=== PATIENT | female | born 1940 | race Caucasian/White ===

== ENCOUNTER 2019-07-29 07:33 | Outpatient (CLI) | payer MEDICARE, OTHER, SELFPAY ==
[2019-07-29 07:58] VITALS: BMI 29.7
--- NOTE | 2019-07-29 08:11 | ECG_ITS ---
NAME OF STUDY: LEXISCAN SESTAMIBI STRESS TEST INDICATION: Chest Pain PROCEDURE: At the baseline, the blood pressure was 136/80 mmHg with a heart rate of 89 bpm. The electrocardiogram showed A sense V paced rhythm. The Lexiscan was infused over a period of 20 seconds. A total of 0.4 milligrams of Lexiscan was infused. The stress phase was continued for a total of 5 minutes. Heart rate at the end of the stress phase was 70 bpm with a blood pressure 127/66 mmHg. The EKG at the peak infusion revealed A sense V paced rhythm. Sestamibi was injected 20 seconds after the Lexiscan infusion. Blood pressure at the end of the recovery phase was 130/68 mmHg with a heart rate of 74 beats per minute. CONCLUSION: 1. Non-diagnostic EKG with LexiScan infusion given underlying paced rhythm. 2. No LexiScan induced chest pain or cardiac arrhythmia. 3. Normal blood pressure and heart rate response. 4. Sestamibi/sestamibi perfusion scan pending; see separate report. Electronically Signed On 07-29-2019 16:04:54 [employer] by Nita Starkey M.D. [id number]
--- NOTE | 2019-07-29 08:11 | NMCV_ITS ---
NM rachael perf SPECT r/s* [id number] Jenifer Osborne Age: 78 Gender: F : 1940 Exam Date: 07/29/2019 08:11 Ordering Phys: Steve Valladares MD Technologist: DOROTHEA Choi Exam Location: [facility] Indications: CHEST PAIN STRESS TEST Please see separate stress test report in [facility] for full findings IMAGE PROTOCOL Rest/Stress 1 Lexiscan Day Radiopharmaceutical Dose (mCi) Administration Site Administered by Rest: Tc-99m 10.8 IV Perla Reyes, SLITTING AND SHIPPING SUPERVISOR Sestamibi Stress:Tc-99m 32.5 IV Perla Trejoer, SLITTING AND SHIPPING SUPERVISOR Sestamibi Rest: 29-Jul-2019 60 Discovery 630 Stress: 29-Jul-2019 30 Discovery 630 0.4mg Lexiscan. Images obtained in supine and prone position. SPECT RESULTS Technical Quality: Good Raw Data Analysis: Normal Image Corrections: No attenuation or motion correction applied Summed Stress Score: 8 Summed Rest Score: 16 Summed Difference Score: 0 PERFUSION FINDINGS Medium sized perfusion abnormality of moderate to severe severity of mid to apical inferior, mid to apical inferolateral, apical septal and apical eagle on rest images with improved tracer uptake on stress images. This is suggestive of attenuation artifact. FUNCTIONAL RESULTS (calculated via Gated SPECT) Stress Image LV EF (%): 82 Stress EDV (mL):55 TID: 0.86 Stress ESV (mL):10 FUNCTIONAL FINDINGS: The left ventricle is normal in size. Transient Ischemia Dilatation of 0.86. There is normal left ventricular systolic function. The left ventricular ejection fraction is normal with a value of 82%. There is normal left ventricular wall thickening. IMPRESSIONS 1. Medium sized perfusion abnormality of mid to apical inferior, mid to apical inferolateral, apical septal and apical eagle with improved tracer uptake on stress images. This is suggestive of attenuation artifact. 2. Overall left ventricular systolic function is normal without regional wall motion abnormalities. 3. The left ventricular ejection fraction is normal with a value of 82%. 4. No coronary ischemia based on the study. Nita Starkey MD (Electronically Signed) Final Date: 29 July 2019 16:10 S
[2019-07-29] MEDS: regadenoson 0.4 Mg/5 ml Syringe IVP (09:51)
[2019-07-29 09:52] VITALS: BP 131/60; PULSE 72
== END 2019-07-29 07:34 | disposition home or self-care (01) ==
PROVIDERS: Family Provider Family Medicine; PCP Internal Medicine Cardiovascular Disease; Visit Provider Family Medicine
DX: R07.9 Chest pain, unspecified (principal)
CPT/HCPCS: 78452; 93017; A9500; J2785

== ENCOUNTER 2019-11-27 00:11 | Emergency (ER) | payer MEDICARE, OTHER, SELFPAY ==
--- NOTE | 2019-11-27 00:19 | XR_ITS ---
WS: [id number] XR chest 1V portable [id number] REASON FOR EXAM: Palpitations FINDINGS: A dual electrode pacemaker is identified in good position. The heart is not enlarged similar to December 04, 2017. There is arteriosclerotic changes in the arch of the aorta. The lung enciso show no pneumonia, pleural effusion, pulmonary edema, or mass effect. There is increa sed markings seen suggesting chronic changes. XR/XR chest 1V portable [id number] IMPRESSION: Dual electrode pacemaker satisfactory position.
[2019-11-27 00:20] VITALS: BP 160/109; PULSE 103; RESP 24; TEMP 36.8; O2SAT 97; BMI 30.3
--- NOTE | 2019-11-27 00:20 | ECG_ITS ---
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 Measurements Intervals [place] Rate: 71 P: 254 NV: 178 QRS: -66 QRSD: 173 T: 83 QT: 430 QTc: 469 Interpretive Statements ELECTRONIC ATRIAL PACEMAKER ELECTRONIC VENTRICULAR PACEMAKER ABNORMAL RHYTHM ECG Compared to ECG 12/03/2017 23:59:18 No significant changes Electronically Signed On 11-27-2019 19:15:38 CDT by Gail Hunt M.D. [id number]
--- NOTE | 2019-11-27 00:27 | ED_ITS ---
HPI - Arrhythmia/Palpitations General: Chief Complaint: Arrhythmia/Palpitations Stated Complaint: IRREGULAR CARDIAC ACTIVITY Time Seen by Provider: 11/27/19 00:18 Source: patient Mode of arrival: ambulatory Limitations: no limitations History of Present Illness: HPI narrative: Ms. Osborne is a nice 78-year-old female who comes in complaining of irregular heartbeat. Patient states that she has history of atrial fibrillation and PACs. 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 She denies any chest pain or shortness of breath although she states when her palpitations get very fast they take her breath away. She is not been syncopal or near syncopal. Her symptoms lasted varying amounts of time but seems to bother her the most is when her heart rate slows down to the 30s. She reported these to her supervisor commissary production at her last visit and he stopped her spironolactone. Currently at this time she feels fine without any symptoms. PFS ED PFSH: Medical History (Updated 11/27/19 @ 02:47 by Sima Moise) Atrial fibrillation and flutter GERD (gastroesophageal reflux disease) Hypertension Hypothyroidism PASTORA on CPAP Osteoarthritis Pacemaker TIA (transient ischemic attack) Surgical History (Updated 11/27/19 @ 00:28 by Sima Moise) S/P cardiac pacemaker procedure S/P cholecystectomy S/P hysterectomy S/P knee surgery S/P partial thyroidectomy Family History Mother Stroke Son Diabetes Other Hypertension Social History Smoking and tobacco status: never smoked Physical Exam Const: COMMON NORMALS: no acute distress, patient oriented x3, no limitations, healthy appearing and well nourished GENERAL APPEARANCE: cooperative, well kempt and well developed HENMT: COMMON NORMALS: normocephalic, atraumatic, external ears normal, EAC's normal and Normal external nose present HEAD & SCALP: normal to inspection, normocephalic and atraumatic FACE & SINUS: normal facial exam and face symmetric NOSE: Normal external nose present and Normal nares present EXTERNAL EAR: Yes external ears normal EXTERNAL AUDITORY CANAL: EAC's normal MOUTH: Normal oral and palatal mucosa present, lip normal and tongue normal Eye: COMMON NORMALS: Equal, round and reactive pupils present and conjunctivae normal GENERAL EYE: appearance normal, both eyes and all related structures ALIGNMENT: Yes alignment normal PERIORBITAL: periorbital findings normal EYELID: eyelids normal CONJUNCTIVA: Yes conjunctivae normal SCLERA: sclerae normal PUPIL: Yes Equal, round and reactive pupils present Neck/C-Spine: COMMON NORMALS: full ROM, no lymphadenopathy, supple, no meningeal signs and no JVD GENERAL: Yes normal visual inspection and Yes trachea midline Chest: COMMONS NORMALS: normal inspection of the chest and normal palpation of entire chest wall Resp: COMMON NORMALS: normal respiratory effort, No retractions and No use of accessory muscles EFFORT & INSPECTION: Yes able to speak in complete sentences and Yes symmetric chest movement AUSCULTATION: no crackles, no rales, no rhonchi and no wheezes Cardio: COMMON NORMALS: no JVD, regular rate, regular rhythm, S1 normal heart sound present and S2 normal heart sound present RATE: regular rate RHYTHM: regular rhythm HEART SOUNDS: S1 normal heart sound present, S2 normal heart sound present, no click, no gallops, no murmurs, no rubs and abnormal split S2 GI: COMMON NORMALS: Soft to palpation and No hepatosplenomegaly present PALPATION: Yes Soft to palpation, No Tenderness to palpation present (GI), No Guarding due to palpation present (GI), No Rigid due to palpation, Yes No hepatosplenomegaly present, No Hernia present, No Palpable mass present and No Pulsatile mass present : COMMON NORMALS: Yes no CVA tenderness BLADDER/KIDNEY EXAM: Yes no CVA tenderness EXTERNAL FEMALE EXAM: No Hernia present Back/Pelvis: COMMON NORMALS: no CVA tenderness, thoracic and lumbar spine normal to inspection, no thoracic nor lumbar tenderness and thoraco-lumbar ROM normal Extremity: COMMON NORMALS: normal to inspection, full ROM, capillary refill normal, no joint enlargement, no clubbing, cyanosis or edema and no calf tenderness Neuro: COMMON NORMALS: patient oriented x3, CN's II-XII intact bilaterally, moves all extremities, no focal motor deficits and no sensory deficits noted MENINGEAL SIGNS: Yes no meningeal signs SPEECH: speech normal Psych: COMMON NORMALS: mental status grossly normal, Normal thought process present, cooperative, normal affect, speech normal and activity/motor behavior normal APPEARANCE: Yes well kempt SPEECH: Yes normal speech THOUGHT PROCESS: Normal thought process present Skin: COMMON NORMALS: no rashes or lesions noted, turgor normal, no jaundice, no petechiae and no mottling GENERAL SKIN EXAM: no rashes or lesions noted and turgor normal Course Vital Signs: Vital signs: Vital Signs Temperature 98.3 F 11/27/19 00:20 Pulse Rate 74 11/27/19 04:00 Respiratory Rate 16 11/27/19 04:00 Blood Pressure 164/92 11/27/19 04:00 Pulse Oximetry 98 11/27/19 04:00 MDM - Arrhythmia/Palpitations MDM Narrative: Medical decision making narrative: Ms. Osborne is a very nice 78-year-old female who comes in complaining of palpitations. She is had no chest pain and no shortness of breath other than she states she will sometimes get startled and have a brief moment of shortness of breath. Her EKGs show paced rhythms the second EKG shows some underlying T wave inversions and going back to her multiple EKGs in the past she has had these T wave inversions present previously. She has had 2- troponins here and her delta is not significant. I have offered to put her in the hospital for further evaluation and care but she refuses. She wants to go home and follow-up with her regular doctor. The patient's pacemaker was also interrogated and other than on October 18 a run of A. isela the patient has not had any bradycardic episodes, tachycardic episodes or ventricular arrhythmias. Patient seems to be encouraged by this and she agrees to follow-up as directed or return here if needed. Again the patient was offered admission for stress testing but she declines. She understood the seriousness of a possible ischemic problem but based upon her history and previous abnormal EKGs she declined admission but preferred to follow-up with her doctor. Lab Data: Attestation: I reviewed the patient's lab results. Labs: Lab Results 11/27/19 11/27/19 11/27/19 Range/Units 00:56 00:56 00:56 WBC 9.8 (4.0-10.0) 10^3/ uL RBC 4.61 (4.1-5.3) 10^6/u L Hgb 13.0 (11.5-15.3) g/dL Hct 39.7 (37.0-47.0) % MCV 86.1 (81-99) fL MCH 28.2 (28.0-34.0) pg MCHC 32.7 (30.0-36.0) g/dL RDW 14.2 (12.1-15.1) % Plt Count 286 (130-400) 10^3/c mm MPV 10.5 H (7.4-10.4) fL Neut % (Auto) 65.6 % Lymph % (Auto) 21.7 % Mcdonough % (Auto) 8.1 % Eos % (Auto) 3.5 % Baso % (Auto) 0.7 % Neut # (Auto) 6.4 (1.8-7.7) 10^3/u L Lymph # (Auto) 2.1 (0.8-4.8) 10^3/u L Mcdonough # (Auto) 0.8 (0.2-0.9) 10^3/u L Eos # (Auto) 0.3 (0.0-0.8) 10^3/u L Baso # (Auto) 0.1 (0.0-0.1) 10^3/u L Nucleated RBC % (a uto) 0 % Nucleated RBCs # 0.0 /100WBC PT 14.30 H (10.5-13.3) SECO NDS INR 1.07 (0.8-1.2) APTT 27.8 (23.9-36.7) SECO NDS Sodium 141 (136-145) mmol/L Potassium 4.0 (3.5-5.1) mmol/L Chloride 103 (98-107) mmol/L Carbon Dioxide 26 (22-29) mmol/L Anion Gap 16.0 (5-19) BUN 14 (8-23) mg/dL Creatinine 0.7 (0.5-0.9) mg/dL Glucose 133 H (65-115) mg/dL Calculated Osmolal ity 290 (285-295) mOsm/k g Calcium 9.5 (8.5-10.5) mg/dL Magnesium 1.8 (1.7-2.3) mg/dL Total Bilirubin 0.3 (0.15-1.2) mg/dL AST 19 (0-32) U/L ALT 16 (0-33) U/L Alkaline Phosphata se 94 (35-105) IU/L Troponin T Baselin e (0-10) ng/L Troponin T 120 Min rampart (0-10) ng/L Delta Troponin T (0-10) ABS# Total Protein 6.6 (6.6-8.7) g/dL Albumin 4.1 (3.5-5.2) g/dL Globulin 2.5 (1.3-4.6) g/dL TSH 0.62 (0.27-4.20) uIU/ mL Urine Color (Yellow) Urine Appearance (CLEAR) Urine pH (5-7) Ur Specific Gravit y (1.005-1.030) Urine Protein (Negative) Urine Glucose (UA) (Normal) Urine Ketones (Negative) Urine Blood (Negative) Urine Nitrate (Negative) Urine Bilirubin (NEGATIVE) Urine Urobilinogen (Negative) mg/dL Ur Leukocyte Marcy ase (Negative) Urine RBC (0-2) /hpf Urine WBC (0-5) /hpf Ur Squamous Epith Cells (0-5) Urine Bacteria (NONE) Digoxin 0.7 (0.6-1.2) ng/mL 11/27/19 11/27/19 11/27/19 Range/Units 00:56 01:30 02:20 WBC (4.0-10.0) 10^3/ uL RBC (4.1-5.3) 10^6/u L Hgb (11.5-15.3) g/dL Hct (37.0-47.0) % MCV (81-99) fL MCH (28.0-34.0) pg MCHC (30.0-36.0) g/dL RDW (12.1-15.1) % Plt Count (130-400) 10^3/c mm MPV (7.4-10.4) fL Neut % (Auto) % Lymph % (Auto) % Mcdonough % (Auto) % Eos % (Auto) % Baso % (Auto) % Neut # (Auto) (1.8-7.7) 10^3/u L Lymph # (Auto) (0.8-4.8) 10^3/u L Mcdonough # (Auto) (0.2-0.9) 10^3/u L Eos # (Auto) (0.0-0.8) 10^3/u L Baso # (Auto) (0.0-0.1) 10^3/u L Nucleated RBC % (a uto) % Nucleated RBCs # /100WBC PT (10.5-13.3) SECO NDS INR (0.8-1.2) APTT (23.9-36.7) SECO NDS Sodium (136-145) mmol/L Potassium (3.5-5.1) mmol/L Chloride (98-107) mmol/L Carbon Dioxide (22-29) mmol/L Anion Gap (5-19) BUN (8-23) mg/dL Creatinine (0.5-0.9) mg/dL Glucose (65-115) mg/dL Calculated Osmolal ity (285-295) mOsm/k g Calcium (8.5-10.5) mg/dL Magnesium (1.7-2.3) mg/dL Total Bilirubin (0.15-1.2) mg/dL AST (0-32) U/L ALT (0-33) U/L Alkaline Phosphata se (35-105) IU/L Troponin T Baselin e 9 (0-10) ng/L Troponin T 120 Min rampart 9.50 (0-10) ng/L Delta Troponin T 0.50 (0-10) ABS# Total Protein (6.6-8.7) g/dL Albumin (3.5-5.2) g/dL Globulin (1.3-4.6) g/dL TSH (0.27-4.20) uIU/ mL Urine Color Yellow (Yellow) Urine Appearance Clear (CLEAR) Urine pH 6 (5-7) Ur Specific Gravit y 1.010 (1.005-1.030) Urine Protein Neg (Negative) Urine Glucose (UA) Norm (Normal) Urine Ketones Negative (Negative) Urine Blood Neg (Negative) Urine Nitrate Negative (Negative) Urine Bilirubin Neg (NEGATIVE) Urine Urobilinogen Norm (Negative) mg/dL Ur Leukocyte Marcy ase Negative (Negative) Urine RBC Rare (0-2) /hpf Urine WBC Rare (0-5) /hpf Ur Squamous Epith Cells Rare (0-5) Urine Bacteria Trace (NONE) Digoxin (0.6-1.2) ng/mL Imaging Data^: CXR: My impression: No acute cardiopulmonary findings. EKG Data^: EKG 1: Attestation: I personally reviewed and interpreted this EKG as follows: EKG interpretation date: 11/27/19 EKG interpretation time: 00:37 Interpretation: AV sequential pacemaker with a ventricular rate of 71 beats a minute, similar to previous. EKG 2: Attestation: I personally reviewed and interpreted this EKG as follows: EKG interpretation date: 11/27/19 EKG interpretation time: 02:50 Interpretation: Atrial paced rhythm at 70 beats a minute, T wave inversions 2, 3, aVF and V2 through V5. Similar to previous. Discharge Plan Discharge Patient Disposition: Home, Self-Care Clinical Impression: Palpitations Condition: Stable Prescriptions: No Action hydralazine 25 mg tablet 25 mg PO TID RF: 0 cetirizine [Zyrtec] 10 mg tablet 5 mg PO DAILY RF: 0 nitroglycerin [Nitrostat] 0.4 mg tablet, sublingual 0.4 mg SUBLINGUAL Q5M PRNRF: 0 Pradaxa 150 mg capsule 150 mg PO BID RF: 0 aspirin [Adult Low Dose Aspirin] 81 mg tablet,delayed release (DR/EC) 81 mg PO DAILY RF: 0 irbesartan [Avapro] 300 mg tablet 300 mg PO DAILY RF: 0 levothyroxine [Levoxyl] 175 mcg tablet 175 mcg PO DAILY RF: 0 pravastatin [Pravachol] 20 mg tablet 20 mg PO DAILY RF: 0 mometasone [Nasonex] 50 mcg/actuation spray,non-aerosol 2 spray INTRANASAL DAILY RF: 0 digoxin 125 mcg (0.125 mg) tablet 125 mcg PO DAILY RF: 0 magnesium oxide 400 mg magnesium capsule 400 mg PO DAILY RF: 0 clindamycin HCl 300 mg capsule 300 mg PO ONCE PRN (Reason: dental) RF: 0 metoprolol tartrate 25 mg tablet 37.5 mg PO BID 90 Days Qty: 270 RF: 3 Eliquis 5 mg tablet 5 mg PO BID 90 Days Qty: 180 RF: 3 pantoprazole 40 mg tablet,delayed release (DR/EC) 40 mg PO BID 90 Days Qty: 180 RF: 3 Discharge Orders: Discharge Order (Routine); Ordered 11/27/19 Ordered By: Sima Moise Referrals: Neel Caceres MD [Physician] - 1-3 days Steve Valladares MD [Primary Care Provider] - 1-3 days Discharge Diet: Advance as tolerated Discharge Activity: Increase activity as tolerated Patient Instructions: Palpitations (ED) Activity Restrictions/Additional Instructions: Please return to the ER immediately for any of the signs or symptoms listed on your discharge instruction sheets, worsening/changing of your symptoms, you are not getting better as quickly as expected, or for ANY other cause or concerns. Call for an appointment to be seen by Dr. Hinds and Dr. Valladares as soon as possible for further evaluation and care. Discharge Date/Time: 11/27/19 04:21 Coding Level of Care Code ED Zinc Furnace Charger for Chg Fwd Exam Comprehensive
[2019-11-27 01:05] LABS: Basophils # 0.1 10^3/uL (0.0-0.1); Basophils % 0.7 %; Eosinophils # 0.3 10^3/uL (0.0-0.8); Eosinophils % 3.5 %; Hematocrit 39.7 % (37.0-47.0); Lymphocytes # 2.1 10^3/uL (0.8-4.8); Lymphocytes % 21.7 %; Mean Corpuscular HGB Conc 32.7 g/dL (30.0-36.0); Mean Corpuscular Hemoglobin 28.2 pg (28.0-34.0); Mean Corpuscular Volume 86.1 fL (81-99); Mean Platelet Volume 10.5 fL (7.4-10.4); Monocytes # 0.8 10^3/uL (0.2-0.9); Monocytes % 8.1 %; Neutrophils # 6.4 10^3/uL (1.8-7.7); Neutrophils % 65.6 %; Nucleated Red Blood Cells % 0 %; Platelet Count 286 10^3/cmm (130-400); Red Blood Count 4.61 10^6/uL (4.1-5.3); Red Cell Distribution Width 14.2 % (12.1-15.1); White Blood Count 9.8 10^3/uL (4.0-10.0)
[2019-11-27 01:19] LABS: INR 1.07 (0.8-1.2)
[2019-11-27 01:26] LABS: Troponin(5th) Baseline 9 ng/L (0-10)
[2019-11-27 01:27] LABS: Partial Thromboplastin Time 27.8 SECONDS (23.9-36.7)
[2019-11-27 01:33] LABS: Alanine Aminotransferase 16 U/L (0-33); Albumin Level 4.1 g/dL (3.5-5.2); Alkaline Phosphatase 94 IU/L (35-105); Blood Urea Nitrogen 14 mg/dL (8-23); Calcium 9.5 mg/dL (8.5-10.5); Carbon Dioxide 26 mmol/L (22-29); Chloride 103 mmol/L (98-107); Globulin 2.5 g/dL (1.3-4.6); Glucose 133 mg/dL (65-115); Magnesium 1.8 mg/dL (1.7-2.3); Osmolality Calculated 290 mOsm/kg (285-295); Sodium 141 mmol/L (136-145); Thyroid Stimulating Hormone 0.62 uIU/mL (0.27-4.20); Total Bilirubin 0.3 mg/dL (0.15-1.2); Total Protein 6.6 g/dL (6.6-8.7)
[2019-11-27 01:47] LABS: Digoxin 0.7 ng/mL (0.6-1.2)
[2019-11-27 02:00] VITALS: O2SAT 98
[2019-11-27 02:07] LABS: Aspartate Amino Transferase 19 U/L (0-32)
--- NOTE | 2019-11-27 02:20 | ECG_ITS ---
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 Measurements Intervals [place] Rate: 70 P: -51 AK: 335 QRS: 87 QRSD: 81 T: -68 QT: 370 QTc: 401 Interpretive Statements ELECTRONIC ATRIAL PACEMAKER POSSIBLE RIGHT VENTRICULAR CONDUCTION DELAY [RSR (QR) IN V1/V2] ST DEVIATION AND MODERATE T-WAVE ABNORMALITY, CONSIDER ANTEROLATERAL ISCHEMIA [-0.1+ mV T WAVE IN V3-V6] ST DEVIATION AND MODERATE T-WAVE ABNORMALITY, CONSIDER INFERIOR ISCHEMIA [-0.1+ mV T WAVE IN II/aVF] Compared to ECG 11/27/2019 00:37:26 T-wave abnormality now present Possible ischemia now present Ventricular-paced complex(es) or rhythm no longer present Electronically Signed On 11-27-2019 19:32:27 CDT by Gail Hunt M.D. [id number]
[2019-11-27 02:24] LABS: Bacteria Urine TRACE; Bilirubin Urine Neg (NEGATIVE); Blood Urine Neg (Negative); Glucose Urine UA Norm (Normal); Ketones Urine Negative (Negative); Leukocyte Esterase Urine Negative (Negative); Nitrate Urine Negative (Negative); Protein Urine Neg (Negative); RBC Urine RARE /hpf (0-2); Squamous Epithelial Cell Urine RARE (0-5); Urine Appearance Clear (CLEAR); Urine Color Yellow (Yellow); Urobilinogen Urine Norm (Negative); WBC Urine RARE /hpf (0-5); pH Urine 6 (5-7)
[2019-11-27 03:08] VITALS: BP 183/97; PULSE 76; RESP 16; O2SAT 97
[2019-11-27 03:15] VITALS: BP 172/96; PULSE 86; RESP 18; O2SAT 98
[2019-11-27 04:00] VITALS: BP 164/92; PULSE 74; RESP 16; O2SAT 98
--- NOTE | 2019-11-28 10:21 | DCPLANNER ---
anatomic pathology manager had message to schedule a follow up appointment for patient with [facility]. anatomic pathology manager called [facility], spoke with Laurence, gave clinic patients information. anatomic pathology manager was told that patients information would be printed and reviewed. Clinic will call patient with appointment information.
--- NOTE | 2019-11-29 11:22 | DCPLANNER ---
Patient had a follow up appointment scheduled for 11.29.19, patient did attend the appointment.
== END 2019-11-27 04:21 | disposition home or self-care (01) ==
PROVIDERS: Emergency Provider Emergency Medicine; PCP Family Medicine
DX: R00.2 Palpitations (principal); Z79.82 Long term (current) use of aspirin; Z79.01 Long term (current) use of anticoagulants; I48.91 Unspecified atrial fibrillation; I10 Essential (primary) hypertension; Z95.0 Presence of cardiac pacemaker; Z86.73 Personal history of transient ischemic attack (TIA), and cerebral infarction without residual deficits
CPT/HCPCS: 12345; 36415; 71045; 80053; 80162; 81001; 83735; 84443; 84484; 85025; 85610; 85730; 93005; 99283; 99284

== ENCOUNTER 2019-11-27 08:05 | Outpatient (CLI) | payer MEDICARE, OTHER, SELFPAY ==
--- NOTE | 2019-11-27 08:22 | US_ITS ---
WS: [id number] ULTRASOUND BREAST RIGHT TECHNIQUE: Ultrasound right breast focused area of concern. CLINICAL INFORMATION: RT BREAST MASS COMPARISON: Ultrasound May 15, 2019 Mammogram May 15, 2019,03/14/2019 and 03/28/2018 FINDINGS: Ultrasound right breast at the 11:00 position 2 cm from the nipple. A few lobulated hypoechoic lesion s consistent with incidental cysts unchanged in appearance since the prior ultrasound. The largest me asures 6 to 7 mm. Incidental lymph node 4 cm from the nipple. A few incidental dilated ducts. US/US breast RT limited* [id number] IMPRESSION: BI-RADS 2 BENIGN FOLLOW UP RECOMMEND RETURN TO ANNUAL SCREENING MAMMOGRAPHY
== END 2019-11-27 08:06 | disposition home or self-care (01) ==
LOC: RADSHAW 08:10
PROVIDERS: PCP Family Medicine; Visit Provider Family Medicine
DX: N63.10 Unspecified lump in the right breast, unspecified quadrant (principal)
CPT/HCPCS: 76642

== ENCOUNTER 2019-12-31 13:46 | Outpatient (CLI) | payer MEDICARE, OTHER, SELFPAY ==
--- NOTE | 2019-12-31 13:52 | US_ITS ---
WS: [id number] ULTRASOUND SOFT TISSUES RIGHT lower extremity. HISTORY: CALF PAIN, RIGHT COMPARISON: None available. TECHNIQUE: 2-D and color Doppler imaging is submitted. Patient directed behavior analyst to the area of pain. No soft tissue abnormality is noted. There is a mus cular venous branch which is patent. No superficial thrombophlebitis. No Dhaliwal's cyst. US/US soft tissue/extremity [id number] IMPRESSION: Negative ultrasound RIGHT lower extremity in the area of pain.
== END 2019-12-31 13:47 | disposition home or self-care (01) ==
LOC: RAD 13:50
PROVIDERS: PCP Family Medicine; Visit Provider Family Medicine
DX: M79.661 Pain in right lower leg (principal)
CPT/HCPCS: 76882

== ENCOUNTER → 2020-06-15 17:58 | Outpatient (BNVA) | payer MEDICARE, OTHER, SELFPAY | PROVIDERS: PCP Family Medicine; Visit Provider Family Medicine | DX: Z20.828 Contact with and (suspected) exposure to other viral communicable diseases (principal) | CPT/HCPCS: 87635 ==

== ENCOUNTER 2020-06-18 09:57 | Outpatient (CLI) | payer MEDICARE, OTHER, SELFPAY ==
[2020-06-18 10:11] VITALS: BP 168/95; PULSE 76; RESP 18; TEMP 36.7; O2SAT 96
[2020-06-18 10:13] VITALS: BMI 30.2
--- NOTE | 2020-06-18 10:13 | A.OFFVIS_ITS ---
Patient Information Referred by: Blaine Symptom onset date: 06/12/20 COVID 19 common symptoms: positive cough, fatigue, throat pain and nausea COVID 19 other sytmptoms: negative chest pressure, chest pain, pleuritic pain, requiring oxygen, requiring more oxygen, respiratory distress, cyanosis, lethargy, confusion, new neurological complaints or other concerning symptoms Severity: moderate Treatment prior to arrival: none [facility] COVID test results: Nasal/Oral Coronavirus 2019 PCR Detected H 06/15/20 17:58 06/15/20 outside results available, scanned Criteria/Plan Inclusion/Exclusion Criteria weight >/= 40kg, + direct test </= 10 days ago and symptom onset </= 10 days ago age >/= 65, age >/= 55 and has hypertension, age >/= 55 and has diabetes and age >/= 55 and has COPD/lung diease not requiring hospitalization, not requiring oxygen (if not chronically on oxygen) and no increase oxygen requirement (if chronically on oxygen) Patient education patient/caregiver received/reviewed fact sheet, Emergency Use Authorization/unap proved drug status discussed with patient/caregiver, alternatives to this treatment discussed with patient/caregiver, risks and benefits of medication reviewed with patient/caregiver, patient/caregiver given opportunity for questions, which were answered and patient/caregiver consents to receiving Monoclonal Antibody Treatment Plan for treatment Meets criteria for Monoclonal Antibody infusion Ordering Monoclonal Antibody infusion for today
[2020-06-18 10:47] VITALS: BP 159/79; PULSE 70; RESP 15; TEMP 36.8; O2SAT 96
[2020-06-18 11:04] VITALS: BP 139/71; PULSE 70; RESP 15; TEMP 36.7; O2SAT 96
[2020-06-18 12:17] VITALS: BP 165/79; PULSE 70; RESP 14; TEMP 36.6; O2SAT 97
--- NOTE | 2020-06-25 12:42 | DCPLANNER ---
Addendum entered by Juanita Flores 06/30/20 14:25: optical manager called to check on patient after getting the BAM infusion. Patient stated that she is doing just fine, she has not been admitted anywhere. Original Note: optical manager had message that patient received the BAM infusion. optical manager called to check on patient after receiving the infusion. Spoke with patient, she stated that before the infusion that she had a fever, a hacky cough, and a runny nose. After the infusion, she is feeling really well, no fever, cough is better and she still has a little runny nose.
== END 2020-06-18 12:30 | disposition home or self-care (01) ==
PROVIDERS: PCP Family Medicine; Visit Provider Family Medicine
DX: U07.1 COVID-19 (principal)
CPT/HCPCS: 96365; J7050

== ENCOUNTER 2020-08-05 13:31 | Outpatient (CLI) | payer MEDICARE, OTHER, SELFPAY ==
--- NOTE | 2020-08-05 13:35 | XR_ITS ---
WS: [id number] DEXA (DUAL ENERGY X-RAY ABSORPTIOMETRY) Bone mineral density was performed using a [email or web address] machine. HISTORY: POSTMENOPAUSAL COMPARISON: None available. Lumbar spine BMD (L1-L4): 1.479 g/cm2 T score: 2.5 Z score: 3.7 Total hip BMD: Left: 1.176 g/cm2. T score: 1.3 Z score: 2.9 Right: 1.201 g/cm2. T score: 1.5 Z score: 3.1 10 year probability of a major osteoporotic fracture is 6%. XR/XR DEXA axial skeleton* [id number] IMPRESSION: NORMAL BONE MINERAL DENSITY based upon the WHO classification for females.
== END 2020-08-05 13:32 | disposition home or self-care (01) ==
LOC: RADWPI 13:33
PROVIDERS: PCP Family Medicine; Visit Provider Family Medicine
DX: Z78.0 Asymptomatic menopausal state (principal)
CPT/HCPCS: 77080

== ENCOUNTER 2020-08-27 12:50 | Outpatient (CLI) | payer MEDICARE, OTHER, SELFPAY ==
--- NOTE | 2020-08-27 13:00 | MM_ITS ---
WS: [id number] BILATERAL DIGITAL SCREENING MAMMOGRAPHY WITH CAD CLINICAL INFORMATION: SCREENING HISTORY: Screening mammogram. No current complaints. COMPARISON: April 11, 2019 TECHNIQUE: Bilateral CC and MLO views. FINDINGS: The breasts are composed of heterogeneous fibroglandular density tissue, which can limit the detectio n of small underlying mass lesions. Stable bilateral ovoid nodules previously evaluated. No suspiciou s mass, asymmetry, calcifications, or architectural distortion. No evidence of malignancy. Vascular c alcification. A few punctate calcifications. MM/[place] [id number] IMPRESSION: BI-RADS: 2-Benign FOLLOW UP: 1 Year Follow-up Recommend return to annual screening mammography.
== END 2020-08-27 12:51 | disposition home or self-care (01) ==
LOC: RADSHAW 12:51
PROVIDERS: PCP Family Medicine; Visit Provider Family Medicine
DX: Z12.31 Encounter for screening mammogram for malignant neoplasm of breast (principal)
CPT/HCPCS: 77067

== ENCOUNTER 2021-02-16 07:45 | Outpatient (CLI) | payer MEDICARE, OTHER, SELFPAY ==
--- NOTE | 2021-02-16 07:58 | US_ITS ---
WS: [id number] ULTRASOUND ABDOMEN LIMITED UPPER QUADRANT CLINICAL INFORMATION: LUQ ABDOMINAL PAIN COMPARISON: None. FINDINGS: Ultrasound left upper quadrant. Ultrasound in the area of concern below the left rib. No visualized a bnormalities in the area of concern. No cystic or solid lesions. Splenic granulomas Splenomegaly: None. Craniocaudal length: 10.4 cm. Left kidney: Normal. Hydronephrosis: None. Size: 11.7 cm x 3.6 cm x 5.1 cm. Ascites: None. US/US abdomen limited [id number] IMPRESSION: Ultrasound in the area of concern below the left rib. No visualized abnormaliti es in the area of concern. No cystic or solid lesions.
== END 2021-02-16 07:46 | disposition home or self-care (01) ==
PROVIDERS: PCP Family Medicine; Visit Provider Family Medicine
DX: R10.12 Left upper quadrant pain (principal)
CPT/HCPCS: 76705

== ENCOUNTER 2021-06-08 03:24 | Emergency (ER) | payer MEDICARE, OTHER, SELFPAY ==
[2021-06-08 03:28] VITALS: PULSE 92; RESP 17; TEMP 36.8; O2SAT 95; BMI 30.7
[2021-06-08 03:40] VITALS: BP 171/85; PULSE 72; RESP 18; O2SAT 97
--- NOTE | 2021-06-08 03:41 | XRR_ITS ---
PROCEDURE INFORMATION: Exam: XR Chest Exam date and time: 06/08/2021 3:41 AM Age: 80 years old Clinical indication: Other: CVA; Prior surgery; Surgery date: 6+ months; Surgery type: Pacemaker TECHNIQUE: Imaging protocol: XR of the chest. Views: 1 view. COMPARISON: CR XR chest 1V portable [id number] 11/27/2019 12:54 AM FINDINGS: Tubes, catheters and devices: Left bipolar pacemaker again evident. Lungs: Obliquity of the interval thin linear density over the right lower lung suggesting an artifact more than depression of the minor fissure. Interval skin fold over each upper lung. Still no consolidation. Pleural spaces: Still no pneumothorax or apparent pleural fluid. Heart/Mediastinum: Continued mild cardiomegaly. Vasculature: Continued mild aortic elongation. Bones/joints: No suggestion of acute bony disease. XR/XR chest 1V portable [id number] IMPRESSION: No acute findings. Left bipolar pacemaker and mild cardiomegaly again evident.
--- NOTE | 2021-06-08 03:41 | ECG_ITS ---
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 Measurements Intervals Talmo Rate: 69 P: -8 IA: 194 QRS: -70 QRSD: 157 T: 80 QT: 413 QTc: 445 Interpretive Statements ELECTRONIC ATRIAL PACEMAKER ELECTRONIC VENTRICULAR PACEMAKER ABNORMAL RHYTHM ECG Compared to ECG 11/27/2019 02:50:53 T-wave abnormality no longer present Possible ischemia no longer present Electronically Signed On 06-08-2021 23:58:08 SHOP COORDINATOR by Gail Hunt M.D. [id number]
--- NOTE | 2021-06-08 03:42 | W.ED.EXTPRO ---
HPI - Extremity Problem General: Chief complaint: Extremity Problem,Nontraumatic Stated complaint: PT said Pre stroke symptoms Time Seen by Provider: 06/08/21 03:34 Source: patient Mode of arrival: ambulatory Limitations: no limitations History of Present Illness: HPI Narrative: 80-year-old female states that she is here for paresthesias to her right leg. She states she is actually has had numbness in her foot for years states that over the last few weeks she has had increasing numbness going up her leg with some numbness on the right side vomiting. States she had no weakness no slurred speech no other deficits whatsoever she denies any worsening improving factors states it seems to come and go at times well denies any pain anywhere. Associated symptoms: Deny chest pain, fever(s) or rash Review of Systems Const: Denies: fever(s), chills, body aches or change in appetite Eyes: Denies: blurry vision or eye discomfort ENMT: Denies: throat pain or dental pain Card: Denies: chest pain Resp: Denies: dyspnea GI: Denies: abdominal pain, nausea, vomiting or diarrhea : Denies: dysuria Musc: Denies: neck pain or back pain Skin/Breast: Denies: rash Neuro: Reports: numbness in extremities Psych: Denies: depression Cole/Lymph: Denies: easy bruising All/Imm: Denies: urticaria PFSH ED PFSH: Medical History (Updated 06/08/21 @ 04:42 by Ayla Lundberg MD) Atrial fibrillation and flutter GERD (gastroesophageal reflux disease) Hypertension Hypothyroidism PASTORA on CPAP Osteoarthritis Pacemaker TIA (transient ischemic attack) Surgical History S/P cardiac pacemaker procedure S/P cholecystectomy S/P hysterectomy S/P knee surgery S/P partial thyroidectomy Family History Mother Stroke Son Diabetes Other Hypertension Social History Smoking and tobacco status: never smoked Physical Exam Const: COMMON NORMALS: no acute distress, patient oriented x3 and healthy appearing HENMT: COMMON NORMALS: normocephalic and atraumatic HEAD & SCALP: normocephalic and atraumatic Eye: COMMON NORMALS: Equal, round and reactive pupils present and EOMs intact bilaterally PUPIL: Yes Equal, round and reactive pupils present Neck/C-Spine: COMMON NORMALS: full ROM and supple Chest: COMMONS NORMALS: normal inspection of the chest and normal palpation of entire chest wall Resp: COMMON NORMALS: normal respiratory effort, No retractions, No use of accessory muscles and clear to auscultation bilaterally AUSCULTATION: clear to auscultation bilaterally Cardio: COMMON NORMALS: regular rate, regular rhythm and No murmurs present (Cardio) RATE: regular rate RHYTHM: regular rhythm GI: COMMON NORMALS: Normal to inspection, nondistended, normoactive bowel sounds present, Soft to palpation, non-tender and no masses PALPATION: Yes Soft to palpation Extremity: COMMON NORMALS: normal to inspection and full ROM Neuro: COMMON NORMALS: patient oriented x3, moves all extremities and no focal motor deficits Psych: COMMON NORMALS: mental status grossly normal, Normal thought process present and cooperative THOUGHT PROCESS: Normal thought process present Skin: COMMON NORMALS: no rashes or lesions noted and no wounds GENERAL SKIN EXAM: no rashes or lesions noted Course Vital Signs: Vital signs: Vital Signs Temperature 98.2 F 06/08/21 03:28 Pulse Rate 72 06/08/21 03:40 Respiratory Rate 18 06/08/21 03:40 Blood Pressure 171/85 06/08/21 03:40 Pulse Oximetry 97 06/08/21 03:40 MDM - Extremity (Nontraumatic) MDM Narrative: Medical decision making narrative: Patient presents with paresthesias that this chronic in nature with some worsening over the last few weeks her exam here is benign no focal deficits NIH is 0 she has no signs of acute stroke but this is more of a chronic issue. No headache no pain anywhere CT of her head and blood work is all normal she is stable for discharge is to follow-up with PCP and return if worsening. Lab Data: Labs: Lab Results 06/08/21 06/08/21 06/08/21 04:00 04:00 04:00 WBC 11.2 10^3/uL H 10 ^3/uL (4.0-10.0) RBC 4.97 10^6/uL 10^6 /uL (4.1-5.3) Hgb 13.6 g/dL g/dL (11.5-15.3) Hct 40.7 % % (37.0-47.0) MCV 81.9 fl fl (81-99) MCH 27.4 pg L pg (28.0-34.0) MCHC 33.4 g/dL g/dL (30.0-36.0) RDW 14.6 % % (12.1-15.1) Plt Count 273 10^3/cmm 10^3 /cmm (130-400) MPV 11.0 fL H fL (7.4-10.4) Neut % (Auto) 72.3 % % Lymph % (Auto) 17.8 % % Oldham % (Auto) 6.8 % % Eos % (Auto) 2.3 % % Baso % (Auto) 0.5 % % Neut # (Auto) 8.06 10^3/uL H 10 ^3/uL (1.8-7.7) Lymph # (Auto) 2.0 10^3/uL 10^3/ uL (0.8-4.8) Oldham # (Auto) 0.8 10^3/uL 10^3/ uL (0.2-0.9) Eos # (Auto) 0.3 10^3/uL 10^3/ uL (0.0-0.8) Baso # (Auto) 0.1 10^3/uL 10^3/ uL (0.0-0.1) Nucleated RBC % (a uto) 0 % % Nucleated RBCs # 0.0 /100WBC /100W BC Sodium 139 mmol/L mmol/L (136-145) Potassium 4.0 mmol/L mmol/L (3.5-5.1) Chloride 102 mmol/L mmol/L (98-107) Carbon Dioxide 25 mmol/L mmol/L (22-29) Anion Gap 16.0 (5-19) BUN 17 mg/dL mg/dL (8-23) Creatinine 0.7 mg/dL mg/dL (0.5-0.9) GFR Calculation Not Reportable Glucose 123 mg/dL H mg/dL (65-115) Calculated Osmolal ity 291 mOsm/kg mOsm/ kg (285-295) Calcium 8.8 mg/dL mg/dL (8.5-10.5) Total Bilirubin 0.5 mg/dL mg/dL (0.15-1.2) AST 14 U/L U/L (0-32) ALT 12 U/L U/L (0-33) Alkaline Phosphata se 95 IU/L IU/L (35-105) Total Protein 6.8 g/dL g/dL (6.6-8.7) Albumin 4.1 g/dL g/dL (3.5-5.2) Globulin 2.7 g/dL g/dL (1.3-4.6) Digoxin 0.6 ng/mL ng/mL (0.6-1.2) Imaging Data^: CT Head: Attestation: I personally reviewed and interpreted this imaging study as follows: Radiologist's impression: [employer] [address] [address] Scan Report Signed Patient: Jenifer Osborne Unit #: [id number] : 1940 Age/Sex: 80 / F ADM Date: 06/08/21 Loc: ER Room/Bed: Attending Dr: Ordering Provider/Ordering MD: Ayla Lundberg MD Date of Service: 06/08/21 Procedure(s): CT head wo con* [id number] Accession Number(s): [id number] Report Number: [id number] PROCEDURE INFORMATION: Exam: CT Head Without Contrast Exam date and time: 06/08/2021 3:41 AM Age: 80 years old Clinical indication: Other: CVA TECHNIQUE: Imaging protocol: Computed tomography of the head without contrast. Radiation optimization: All CT scans at this facility use at least one of these dose optimization techniques: automated exposure control; mA and/or kV adjustment per patient size (includes targeted exams where dose is matched to clinical indication); or iterative reconstruction. COMPARISON: CT head wo con* [id number] 05/11/2017 2:16 PM RADIATION DOSE METRICS: Total DLP (mGy-cm): 808.47 FINDINGS: Brain: Continued patchy low density in the cerebral white matter bilaterally consistent with chronic ischemic changes. Subarachnoid spaces still within normal limits for age. No apparent edema in the brain. No intracranial hemorrhage. Cerebral ventricles: Fourth ventricle still within normal limits. Continued mild enlargement of the 3rd and lateral ventricles. Paranasal sinuses: Still no air-fluid levels or significant mucosal thickening in the visualized paranasal sinuses. Mastoid air cells: Possible interval minimal left mastoid disease. Vasculature: Continued prominent arterial calcifications. Bones/joints: Unremarkable. No acute fracture. Soft tissues: Unremarkable. CT/CT head wo con* [id number] IMPRESSION: 1. No acute intracranial findings. Chronic ischemic changes again evident. 2. Possible interval minimal left mastoid disease. Dictated By: Harini Nava MD Signed By: Harini Nava MD Signed Date/Time: 06/08/21432 DD/ 0 EKG Data^: EKG 1: Attestation: I personally reviewed and interpreted this EKG as follows: EKG interpretation date: 06/08/21 EKG interpretation time: 03:55 Interpretation: paced hr [address] or t wave abnormalities qrs 157 qtc 432 Discharge Plan Discharge Patient Disposition: Home Clinical Impression: Paresthesia Condition: Stable Prescriptions: No Action nitroglycerin [Nitrostat] 0.4 mg tablet, sublingual 0.4 mg SUBLINGUAL Q5M PRNRF: 0 aspirin [Adult Low Dose Aspirin] 81 mg tablet,delayed release (DR/EC) 81 mg PO DAILY RF: 0 irbesartan [Avapro] 300 mg tablet 300 mg PO DAILY RF: 0 pravastatin [Pravachol] 20 mg tablet 20 mg PO DAILY RF: 0 digoxin 125 mcg (0.125 mg) tablet 125 mcg PO DAILY RF: 0 magnesium oxide 400 mg magnesium capsule 400 mg PO DAILY RF: 0 clindamycin HCl 300 mg capsule 300 mg PO ONCE PRN (Reason: dental) RF: 0 levothyroxine [Levoxyl] 175 mcg tablet 150 mcg PO DAILY RF: 0 mometasone [Nasonex] 50 mcg/actuation spray,non-aerosol 2 spray INTRANASAL DAILY PRNRF: 0 pantoprazole 40 mg tablet,delayed release (DR/EC) 40 mg PO BID Qty: 180 RF: 3 metoprolol tartrate 25 mg tablet 50 mg PO BID RF: 0 diphenhydramine HCl [Benadryl Allergy] 25 mg tablet 25 mg PO TID PRNRF: 0 spironolactone 25 mg tablet 12.5 mg PO DAILY RF: 0 Eliquis 5 mg tablet 5 mg PO BID 90 Days Qty: 180 RF: 3 Discharge Orders: Discharge ED (Routine); Ordered 06/08/21 Ordered By: Ayla Lundberg Referrals: Steve Valladares MD [Primary Care Provider] - 1-3 days Discharge Diet: Advance as tolerated Discharge Activity: Resume usual activity Patient Instructions: Paresthesia (ED) Coding Level of Care Code ED Biodies[employer] Product Manager for Phyllisg Fwd Exam Comprehensive NIH stroke score NIHSS Level Of Consciousness - 1a: 0 Level Of Consciousness Questions - 1b: Both Correct Level Of Consciousness Commands - 1c: Both Correct Best Gaze - 2: Normal Visual Oden - 3: No Visual Loss Facial Palsy - 4: Normal Motor Arm Right - 5: No Drift Motor Arm Left - 5: No Drift Motor Leg Right - 6: No Drift Motor Leg Left - 6: No Drift Limb Ataxia - 7: Absent Sensory - 8: Normal Best Language - 9: No Aphasia Dysarthia - 10: Normal Extinction And Inattention - 11: 0 Score Total Score: 0
[2021-06-08 04:08] LABS: Basophils # 0.1 10^3/uL (0.0-0.1); Basophils % 0.5 %; Eosinophils # 0.3 10^3/uL (0.0-0.8); Eosinophils % 2.3 %; Hematocrit 40.7 % (37.0-47.0); Hemoglobin 13.6 g/dL (11.5-15.3); Lymphocytes % 17.8 %; Mean Corpuscular HGB Conc 33.4 g/dL (30.0-36.0); Mean Corpuscular Hemoglobin 27.4 pg (28.0-34.0); Mean Corpuscular Volume 81.9 fl (81-99); Monocytes # 0.8 10^3/uL (0.2-0.9); Monocytes % 6.8 %; Neutrophils # 8.06 10^3/uL (1.8-7.7); Neutrophils % 72.3 %; Nucleated Red Blood Cells % 0 %; Platelet Count 273 10^3/cmm (130-400); Red Blood Count 4.97 10^6/uL (4.1-5.3); Red Cell Distribution Width 14.6 % (12.1-15.1); White Blood Count 11.2 10^3/uL (4.0-10.0)
[2021-06-08 04:32] LABS: Alanine Aminotransferase 12 U/L (0-33); Albumin Level 4.1 g/dL (3.5-5.2); Alkaline Phosphatase 95 IU/L (35-105); Aspartate Amino Transferase 14 U/L (0-32); Blood Urea Nitrogen 17 mg/dL (8-23); Calcium 8.8 mg/dL (8.5-10.5); Carbon Dioxide 25 mmol/L (22-29); Chloride 102 mmol/L (98-107); Creatinine Clr Calc Pharmacy 59.0011; Digoxin 0.6 ng/mL (0.6-1.2); Globulin 2.7 g/dL (1.3-4.6); Glucose 123 mg/dL (65-115); Osmolality Calculated 291 mOsm/kg (285-295); Sodium 139 mmol/L (136-145); Total Bilirubin 0.5 mg/dL (0.15-1.2); Total Protein 6.8 g/dL (6.6-8.7)
[2021-06-08 04:45] VITALS: BP 141/76; PULSE 70; O2SAT 96
== END 2021-06-08 04:54 | disposition home or self-care (01) ==
PROVIDERS: Emergency Provider Emergency Medicine; PCP Family Medicine
DX: R20.2 Paresthesia of skin (principal); Z79.82 Long term (current) use of aspirin; Z79.01 Long term (current) use of anticoagulants; I10 Essential (primary) hypertension; Z95.0 Presence of cardiac pacemaker; Z86.73 Personal history of transient ischemic attack (TIA), and cerebral infarction without residual deficits
CPT/HCPCS: 70450; 71045; 80053; 80162; 85025; 93005; 99283

== ENCOUNTER 2021-10-13 11:08 | Outpatient (CLI) | payer MEDICARE, OTHER, SELFPAY ==
--- NOTE | 2021-10-13 11:51 | CT_ITS ---
WS: [id number] CT HEAD TECHNIQUE: Noncontrast CT of the head obtained from the skullbase to the vertex. CLINICAL INFORMATION: UNSTEADY GAIT/HX OF HEAD INJURY COMPARISON: CT June 08, 2021 DLP: 1013.[address] scans at [facility] use at least one of these dose optimization techniques: automated e xposure control; mA and/or kV adjustment per patient size (includes targeted exams where dose is matc hed to clinical indication); or iterative reconstruction. FINDINGS: No evidence of intracranial hemorrhage or mass effect. Ventricular system and basal cisterns are hobbs nt. Mild small vessel changes with moderate parenchymal volume loss. Small chronic lacunar infarct LE FT lateral basal ganglia. Tiny punctate chronic lacunar infarct LEFT caudate. Intracranial vascular c alcification. No extra-axial fluid collections. Paranasal sinuses and mastoid air cells well aerated. Normal visualized soft tissues. CT/CT head wo con* [id number] IMPRESSION: 1. No evidence of intracranial hemorrhage or mass effect. 2. Mild small vessel changes. Moderate parenchymal volume loss. 3. No acute intracranial findings and no significant changes since May.
== END 2021-10-13 11:09 | disposition home or self-care (01) ==
LOC: RAD 11:14
PROVIDERS: PCP Family Medicine; Visit Provider Family Medicine
DX: R26.9 Unspecified abnormalities of gait and mobility (principal); Z87.828 Personal history of other (healed) physical injury and trauma
CPT/HCPCS: 70450

== ENCOUNTER 2021-10-29 08:15 | Outpatient (CLI) | payer MEDICARE, OTHER, SELFPAY ==
--- NOTE | 2021-10-29 08:24 | MM_ITS ---
WS: [id number] Bilateral screening 3D tomosynthesis digital mammogram, 10/29/2021 Clinical Data: SCREENING Comparison: 08/27/2020, 05/15/2019, 04/11/2019, 03/28/2018, 03/20/2017, 03/11/2016, 03/04/2015, 02/25/2014, 01/14/2013, 01/16/2012, 01/12/2011, 12/31/2009. Findings: The breast parenchymal pattern shows heterogeneous density. No spiculated masses or clustered calcifi cations are seen. There are no secondary signs of carcinoma. There are benign calcifications througho ut both breasts. There is a 1.2 cm nodule in the anterior aspect of the right breast unchanged. Ther e are mole markers on both breasts. MM/[place] [id number] Impression: 1. Negative bilateral mammogram unchanged. 2. Recommend annual screening mammograms. BIRADS: 1-Negative FOLLOW UP: 1 Year Follow-up The CAD quotation checker was used.
== END 2021-10-29 08:16 | disposition home or self-care (01) ==
LOC: RAD 08:21
PROVIDERS: PCP Family Medicine; Visit Provider Family Medicine
DX: Z12.31 Encounter for screening mammogram for malignant neoplasm of breast (principal)
CPT/HCPCS: 77063; 77067

== ENCOUNTER → 2022-01-26 12:45 | Outpatient (BNVA) | payer MEDICARE, OTHER, SELFPAY | PROVIDERS: PCP Family Medicine; Visit Provider Internal Medicine | DX: I10 Essential (primary) hypertension (principal); I48.91 Unspecified atrial fibrillation; I48.92 Unspecified atrial flutter; Z95.0 Presence of cardiac pacemaker | CPT/HCPCS: 99214 ==

== ENCOUNTER → 2022-02-09 14:12 | Outpatient (BNVA) | payer MEDICARE, OTHER, SELFPAY | PROVIDERS: PCP Family Medicine; Visit Provider Family Medicine | DX: R30.0 Dysuria (principal); N39.0 Urinary tract infection, site not specified | CPT/HCPCS: 81000; 87086 ==

== ENCOUNTER → 2022-03-31 12:20 | Outpatient (BNVA) | payer MEDICARE, OTHER, SELFPAY | PROVIDERS: PCP Family Medicine; Visit Provider Family Medicine | DX: I10 Essential (primary) hypertension (principal); E78.5 Hyperlipidemia, unspecified; I48.91 Unspecified atrial fibrillation; I48.92 Unspecified atrial flutter; R73.9 Hyperglycemia, unspecified | CPT/HCPCS: 80053; 80061; 80162; 83036; 84443; 85025 ==

== ENCOUNTER → 2022-04-15 11:10 | Outpatient (BNVA) | payer MEDICARE, OTHER, SELFPAY | PROVIDERS: PCP Family Medicine; Visit Provider Internal Medicine | DX: Z45.010 Encounter for checking and testing of cardiac pacemaker pulse generator [battery] (principal) | CPT/HCPCS: 93280 ==

== ENCOUNTER → 2022-08-02 15:39 | Outpatient (BNVA) | payer MEDICARE, OTHER, SELFPAY | PROVIDERS: PCP Family Medicine; Visit Provider Internal Medicine | DX: Z45.010 Encounter for checking and testing of cardiac pacemaker pulse generator [battery] (principal) | CPT/HCPCS: 93296 ==

== ENCOUNTER → 2022-08-03 12:35 | Outpatient (BNVA) | payer MEDICARE, OTHER, SELFPAY | PROVIDERS: PCP Family Medicine; Visit Provider Internal Medicine | DX: I48.91 Unspecified atrial fibrillation (principal); I48.92 Unspecified atrial flutter; R01.1 Cardiac murmur, unspecified; I10 Essential (primary) hypertension; Z95.0 Presence of cardiac pacemaker; Z79.01 Long term (current) use of anticoagulants; Z79.82 Long term (current) use of aspirin | CPT/HCPCS: 99214 ==

== ENCOUNTER 2022-08-30 14:45 | Outpatient (CLI) | payer MEDICARE, OTHER, SELFPAY ==
--- NOTE | 2022-08-30 15:15 | USCV_ITS ---
Jenifer Osborne Age: 81 Gender: F : 1940 Exam Date: 08/30/2022 15:55 Ordering Phys: Monty Shell M.D ([email or web address]) Technologist: Valdez Wren Exam Location: [facility] [place] Indication: MURMUR BP: 130 / 70 HR: 82 Rhythm: Sinus Technical Quality: Adequate MEASUREMENTS (Male / Female) Normal Values 2D ECHO LV Diastolic Diameter PLAX 3.9 cm 4.2 - 5.9 / 3.9 - 5.3 cm LV Systolic Diameter PLAX 1.9 cm IVS Diastolic Thickness 1.1 cm 0.6 - 1.0 / 0.6 - 0.9 cm IVS Systolic Thickness 1.3 cm LVPW Diastolic Thickness 1.1 cm 0.6 - 1.0 / 0.6 - 0.9 cm LVPW Systolic Thickness 1.9 cm LVOT Diameter 2.0 cm LV Ejection Fraction 2D Teich 83.7 % LV Ejection Fraction MOD 2C 61.0 % LV Ejection Fraction 2C AL 60.8 % LA Diameter 3.7 cm IVC Diameter 1.7 cm M-MODE Aortic Annulus Diameter 2.9 cm LA Ao Ratio MM 1.3 MV E Point Septal Separation 0.6 cm DOPPLER AV Peak Velocity 132.0 cm/s LVOT Peak Velocity 115.0 cm/s AV Area Cont Eq vti 3.2 cm squared AV Area Cont Eq pk 2.8 cm squared MV Area PHT 5.0 cm squared Mitral E to A Ratio 1.1 MV E' Velocity 54.0 cm/s Mitral E to MV E' Ratio 14.8 Mitral E to LV E' Lateral Ratio 14.2 Mitral E to LV E' Septal Ratio 15.5 TR Peak Velocity 259.5 cm/s TR Peak Gradient 26.9 mmHg TV Peak E Velocity 73.0 cm/s Right Atrial Pressure 3.0 mmHg Pulmonary Artery Systolic Pressu 29.9 mmHg RV Acceleration Time 0.1 s FINDINGS Left Ventricle Left ventricle is normal in size. LV systolic function is normal with EF of 55 to 60%. No regional wall motion abnormalities are seen. Right Ventricle Normal in size and function. Pacemaker lead is noted. Right Atrium Normal in size Left Atrium Normal in size Mitral Valve Structurally normal mitral valve. Mild mitral regurgitation. Aortic Valve Aortic valve is thickened. No significant stenosis or regurgitation. Tricuspid Valve Mild tricuspid regurgitation. RVSP is 35 to 40mmHG. This is consistent with mild pulmonary hypertension Pulmonic Valve Not well-visualized Pericardium Normal Aorta Normal in size IVC Appears to be normal CONCLUSIONS LV systolic function is normal with EF of 55 to 60% Mild mitral regurgitation Mild tricuspid regurgitation Mild pulmonary hypertension Compared to prior echocardiogram from 2017, no significant changes are noted Monty Shell MD (Electronically Signed) Final Date: 10 September 2022 09:28 S
== END 2022-08-30 14:46 | disposition home or self-care (01) ==
LOC: RAD 14:46
PROVIDERS: PCP Family Medicine; Visit Provider Internal Medicine
DX: R01.1 Cardiac murmur, unspecified (principal); I08.1 Rheumatic disorders of both mitral and tricuspid valves; I27.20 Pulmonary hypertension, unspecified
CPT/HCPCS: 93306

== ENCOUNTER → 2022-09-12 14:19 | Outpatient (BNVA) | payer MEDICARE, OTHER, SELFPAY | PROVIDERS: PCP Family Medicine; Visit Provider Family Medicine | DX: R19.5 Other fecal abnormalities (principal) | CPT/HCPCS: 88305 ==

== ENCOUNTER → 2022-10-03 13:33 | Outpatient (BNVA) | payer MEDICARE, OTHER, SELFPAY | PROVIDERS: PCP Family Medicine; Visit Provider Family Medicine | DX: E78.5 Hyperlipidemia, unspecified (principal); I10 Essential (primary) hypertension; I48.91 Unspecified atrial fibrillation; I48.92 Unspecified atrial flutter; R73.9 Hyperglycemia, unspecified | CPT/HCPCS: 80053; 80061; 83036; 84443 ==

== ENCOUNTER → 2022-10-11 10:05 | Outpatient (BNVA) | payer MEDICARE, OTHER, SELFPAY | PROVIDERS: PCP Family Medicine; Visit Provider Family Medicine | DX: R73.9 Hyperglycemia, unspecified (principal) | CPT/HCPCS: 83036 ==

== ENCOUNTER 2022-11-01 13:36 | Outpatient (CLI) | payer MEDICARE, OTHER, SELFPAY ==
--- NOTE | 2022-11-01 13:50 | MM_ITS ---
WS: [id number] BILATERAL 3D TOMOSYNTHESIS DIGITAL SCREENING MAMMOGRAPHY WITH CAD CLINICAL INFORMATION: SCREENING HISTORY: Screening mammogram. No current complaints. COMPARISON: 2021 TECHNIQUE: Bilateral CC and MLO views. FINDINGS: The breasts are composed of heterogeneous fibroglandular density tissue, which can limit the detectio n of small underlying mass lesions. Stable nodular tissue RIGHT breast anteriorly. Stable ovoid nodul e anterior RIGHT breast measuring 9 mm. No suspicious mass, asymmetry, calcifications, or architectural distortion. No evidence of malignanc y. Vascular calcifications. Punctate and lucent centered calcifications. MM/[place] [id number] IMPRESSION: BI-RADS: 2-Benign FOLLOW UP: 1 Year Follow-up Recommend return to annual screening mammography.
== END 2022-11-01 13:37 | disposition home or self-care (01) ==
LOC: RAD 13:42
PROVIDERS: PCP Family Medicine; Visit Provider Family Medicine
DX: Z12.31 Encounter for screening mammogram for malignant neoplasm of breast (principal); Z95.0 Presence of cardiac pacemaker
CPT/HCPCS: 77063; 77067; 93296

== ENCOUNTER → 2022-11-30 14:35 | Outpatient (BNVA) | payer MEDICARE, OTHER, SELFPAY | PROVIDERS: PCP Family Medicine; Visit Provider Dermatology | DX: L82.1 Other seborrheic keratosis (principal); L72.0 Epidermal cyst; L57.8 Other skin changes due to chronic exposure to nonionizing radiation; L81.4 Other melanin hyperpigmentation; L98.8 Other specified disorders of the skin and subcutaneous tissue; Z12.83 Encounter for screening for malignant neoplasm of skin | CPT/HCPCS: 99213 ==

== ENCOUNTER → 2023-02-02 14:49 | Outpatient (BNVA) | payer MEDICARE, OTHER, SELFPAY | PROVIDERS: PCP Family Medicine; Visit Provider Internal Medicine | DX: I10 Essential (primary) hypertension (principal); I48.91 Unspecified atrial fibrillation; I48.92 Unspecified atrial flutter; Z95.0 Presence of cardiac pacemaker; Z79.01 Long term (current) use of anticoagulants; Z79.82 Long term (current) use of aspirin | CPT/HCPCS: 99214 ==

== ENCOUNTER → 2023-04-04 13:49 | Outpatient (BNVA) | payer MEDICARE, OTHER, SELFPAY | PROVIDERS: PCP Family Medicine; Visit Provider Family Medicine | DX: R73.9 Hyperglycemia, unspecified (principal); E78.5 Hyperlipidemia, unspecified; I10 Essential (primary) hypertension; I48.91 Unspecified atrial fibrillation; I48.92 Unspecified atrial flutter | CPT/HCPCS: 80053; 80061; 83036; 84443; 85025 ==

== ENCOUNTER → 2023-07-12 13:41 | Outpatient (BNVA) | payer MEDICARE, OTHER, SELFPAY | PROVIDERS: PCP Family Medicine; Visit Provider Family Medicine | DX: I10 Essential (primary) hypertension (principal); I48.91 Unspecified atrial fibrillation; I48.92 Unspecified atrial flutter; E78.5 Hyperlipidemia, unspecified; R73.9 Hyperglycemia, unspecified | CPT/HCPCS: 80053; 83036; 84443; 85025 ==

== ENCOUNTER → 2023-08-10 14:53 | Outpatient (BNVA) | payer MEDICARE, OTHER, SELFPAY | PROVIDERS: PCP Family Medicine; Visit Provider Internal Medicine | DX: I10 Essential (primary) hypertension (principal); I48.91 Unspecified atrial fibrillation; I48.92 Unspecified atrial flutter; Z95.0 Presence of cardiac pacemaker; Z79.01 Long term (current) use of anticoagulants | CPT/HCPCS: 99214 ==

== ENCOUNTER 2023-11-03 15:11 | Outpatient (CLI) | payer MEDICARE, OTHER, SELFPAY ==
--- NOTE | 2023-11-03 15:15 | MM_ITS ---
WS: [id number] BILATERAL 3D TOMOSYNTHESIS DIGITAL SCREENING MAMMOGRAPHY WITH CAD CLINICAL INFORMATION: SCREENING HISTORY: Screening mammogram. No current complaints. COMPARISON: 2022 TECHNIQUE: Bilateral CC and MLO views. FINDINGS: The breasts are composed of heterogeneous fibroglandular density tissue, which can limit the detectio n of small underlying mass lesions. No suspicious mass, asymmetry, calcifications, or architectural d istortion. No evidence of malignancy. Vascular calcifications. Punctate and lucent centered calcifica tions. Stable nodular densities RIGHT breast some of which demonstrate calcifications. MM/[id number] IMPRESSION: BI-RADS: 2-Benign FOLLOW UP: 1 Year Follow-up Recommend return to annual screening mammography.
== END 2023-11-03 15:12 | disposition home or self-care (01) ==
LOC: RAD 15:12
PROVIDERS: PCP Family Medicine; Visit Provider Family Medicine
DX: Z12.31 Encounter for screening mammogram for malignant neoplasm of breast (principal); R92.333 Mammographic heterogeneous density, bilateral breasts; R92.1 Mammographic calcification found on diagnostic imaging of breast
CPT/HCPCS: 77063; 77067

== ENCOUNTER 2023-11-08 14:27 | Emergency (ER) | payer MEDICARE, OTHER, SELFPAY ==
--- NOTE | 2023-11-08 14:35 | XR_ITS ---
WS: [id number] Exam: XR [id number] Date/Time of Exam: 11/08/2023 2:47 PM Reason For Exam: constipation No bowel obstruction or pneumoperitoneum. Several calcifications overlie the bilateral renal silhouet penny and could represent renal lithiasis. Numerous nonspecific pelvic calcifications. Moderate amount retained stool in the rectosigmoid colon and LEFT colon. Also noted is questionable bony sclerosis of the pelvis, proximal hips and lower lumbar spine. The possibility of osteoblastic bone disease could have this appearance. XR/XR KUB [id number] IMPRESSION: 1. Moderate amount retained stool in the sigmoid and LEFT colon. No acute abdom inal process. 2. Calcifications noted in the RIGHT and LEFT abdomen that might represent vibha l lithiasis. Bilateral nonspecific pelvic calcifications. 3. Questionable bony sclerosis of the RIGHT and LEFT pelvis and bilateral hips and possibly the lower lumbar spine. Osteoblastic bone metastasis might have th is appearance.
[2023-11-08 14:48] VITALS: BP 135/52; PULSE 76; RESP 18; TEMP 36.6; O2SAT 97
--- NOTE | 2023-11-08 16:25 | ED_ITS ---
HPI - General Adult 2 General: Chief complaint: General Medical Stated complaint: constipation Time Seen by Provider: 11/08/23 15:54 Source: patient Mode of arrival: ambulatory Limitations: no limitations History of Present Illness: 82-year-old female states she has not amador d a bowel movement in 3 days. States she has had some slight abdominal cramping she denies any vomiting denies any fever states that on Monday she had a period where she felt slightly lightheaded that is since improved. She denies any chest pain. Denies any cough or fever Associated symptoms: Deny chest pain, dyspnea, headache(s), nausea, rash or vomiting Review of Systems 2 Const: Denies: fever(s), chills, body aches or change in appetite ENMT: Denies: throat pain or dental pain Card: Denies: chest pain Resp: Denies: dyspnea GI: Reports: constipation; Denies: abdominal pain, nausea, vomiting or diarrhea Musc: Denies: neck pain or back pain Skin/Breast: Denies: rash Neuro: Denies: headache(s) PFSH ED 2 PFSH: Medical History Hyperlipidemia TIA (transient ischemic attack) GERD (gastroesophageal reflux disease) Osteoarthritis PASTORA on CPAP Hypothyroidism Hypertension Atrial fibrillation and flutter Pacemaker Surgical History S/P cardiac pacemaker procedure S/P partial thyroidectomy S/P cholecystectomy S/P hysterectomy S/P knee surgery Family History Mother Stroke Son Diabetes Other Hypertension Social History Smoking and tobacco/nicotine status: never used tobacco/nicotine Physical Exam 2 Const: COMMON NORMALS: no acute distress, patient oriented x3 and healthy appearing HENMT: COMMON NORMALS: normocephalic and atraumatic HEAD & SCALP: n ormocephalic and atraumatic Eye: COMMON NORMALS: Equal, round and reactive pupils present and EOMs intact bilaterally PUPIL: Yes Equal, round and reactive pupils present Neck/C-Spine: COMMON NORMALS: full ROM and supple Chest: COMMONS NORMALS: normal inspection of the chest Resp: COMMON NORMALS: normal respiratory effort, No retractions, No use of accessory muscles and clear to auscultation bilaterally AUSCULTATION: clear to auscultation bilaterally Cardio: COMMON NORMALS: regular rate, regular rhythm and No murmurs present (Cardio) RATE: regular rate RHYTHM: regular rhythm GI: COMMON NORMALS: Normal to inspection, nondistended, normoactive bowel sounds present, Soft to palpation, non-tender and no masses PALPATION: Yes Soft to palpation Extremity: COMMON NORMALS: normal to inspection and full ROM Neuro: COMMON NORMALS: patient oriented x3, moves all extremities and no focal motor deficits Psych: COMMON NORMALS: mental status grossly normal, Normal thought process present and cooperative THOUGHT PROCESS: Normal thought process present Skin: COMMON NORMALS: no rashes or lesions noted and no wounds GENERAL SKIN EXAM: no rashes or lesions noted Course 2 Vital Signs: Vital signs: Vital Signs Temperature 97.9 F 11/08/23 14:48 Pulse Rate 70 11/08/23 18:00 Respiratory Rate 18 11/08/23 18:00 Blood Pressure 134/79 11/08/23 18:00 Pulse Oximetry 96 11/08/23 18:00 Oxygen Delivery Me thod Room Air 11/08/23 18:00 [facility] - General Adult Medical Decision Making Patient presents here with abdominal pain and constipation constipation as seen on x-ray as well blood works normal exam is benign we will place her on GoLytely did give her lactulose here she is follow-up with PCP return if worsening she understands agrees to plan Medical Records I reviewed the patient's medical records. Lab Data I reviewed the patient's lab results. 11/08/23 16:45 11/08/23 16:45 Radiology Impressions KUB X-Ray 11/08/23 14:35 IMPRESSION: 1. Moderate amount retained stool in the sigmoid and LEFT colon. No acute abdominal process. 2. Calcifications noted in the RIGHT and LEFT abdomen that might represent renal lithiasis. Bilateral nonspecific pelvic calcifications. 3. Questionable bony sclerosis of the RIGHT and LEFT pelvis and bilateral hips and possibly the lower lumbar spine. Osteoblastic bone metastasis might have this appearance. Laboratory Results WBC 9.11 10^3/uL (3.29-11.43) 11/08/23 16:45 RBC 4.37 10^6/uL (3.85-5.65) 11/08/23 16:45 Hgb 10.80 g/dL (11.27-16.99) L 11/08/23 16:45 Hct 34.6 % (36-47) L 11/08/23 16:45 MCV 79.2 fl (85-98) L 11/08/23 16:45 MCH 24.7 pg (27-33) L 11/08/23 16:45 MCHC 31.2 g/dL (30-55) 11/08/23 16:45 RDW 15.7 % (12.1-15.1) H 11/08/23 16:45 Plt Count 232 10^3/cmm (157-399) 11/08/23 16:45 MPV 10.3 fL (7.4-10.4) 11/08/23 16:45 Neut % (Auto) 69.8 % 11/08/23 16:45 Lymph % (Auto) 14.7 % 11/08/23 16:45 [place] % (Auto) 13.3 % 11/08/23 16:45 Eos % (Auto) 0.7 % 11/08/23 16:45 Baso % (Auto) 0.7 % 11/08/23 16:45 Neut # (Auto) 6.37 10^3/uL (1.8-7.7) 11/08/23 16:45 Lymph # (Auto) 1.3 10^3/uL (0.8-4.8) 11/08/23 16:45 [place] # (Auto) 1.2 10^3/uL (0.2-0.9) H 11/08/23 16:45 Eos # (Auto) 0.1 10^3/uL (0.0-0.8) 11/08/23 16:45 Baso # (Auto) 0.1 10^3/uL (0.0-0.1) 11/08/23 16:45 Nucleated RBC % (auto) 0 % 11/08/23 16:45 Nucleated RBCs # 0.0 /100WBC 11/08/23 16:45 Sodium 138 mmol/L (136-145) 11/08/23 16:45 Potassium 4.4 mmol/L (3.5-5.1) 11/08/23 16:45 Chloride 101 mmol/L (98-107) 11/08/23 16:45 Carbon Dioxide 26 mmol/L (22-29) 11/08/23 16:45 Anion Gap 15.4 (5-19) 11/08/23 16:45 BUN 20 mg/dL (8-23) 11/08/23 16:45 Creatinine 0.8 mg/dL (0.5-0.9) 11/08/23 16:45 GFR Calculation Not Reportable 11/08/23 16:45 Glucose 155 mg/dL (65-115) H 11/08/23 16:45 Calculated Osmolality 292 mOsm/kg (285-295) 11/08/23 16:45 Calcium 8.8 mg/dL (8.5-10.5) 11/08/23 16:45 Total Bilirubin 0.4 mg/dL (0.15-1.2) 11/08/23 16:45 AST 18 U/L (0-32) 11/08/23 16:45 ALT 10 U/L (0-33) 11/08/23 16:45 Alkaline Phosphatase 97 U/L (35-105) 11/08/23 16:45 Total Protein 6.9 g/dL (6.6-8.7) 11/08/23 16:45 Albumin 3.8 g/dL (3.5-5.2) 11/08/23 16:45 Globulin 3.1 g/dL (1.3-4.6) 11/08/23 16:45 All radiology interpretation(s) finalized by discharge Discharge Plan Discharge Patient Disposition: Home Clinical Impression: Constipation, Abdominal pain Condition: Stable Prescriptions: New Miralax 17 gram powder in packet 17 g PO DAILY Qty: 14 0RF Golytely 236-22.74-6.74 -5.86 gram recon soln 240 ml PO Q10M Qty: 4000 0RF Rx Instructions: until fecal effluent is clear No Action aspirin [Adult Low Dose Aspirin] 81 mg tablet,delayed release (DR/EC) 81 mg PO DAILY magnesium oxide 400 mg magnesium capsule 400 mg PO DAILY diphenhydramine HCl [Benadryl Allergy] 25 mg tablet 25 mg PO TID PRN acetaminophen [Tylenol Arthritis Pain] 650 mg tablet extended release 1,300 mg PO Q12H cholecalciferol (vitamin D3) 50 mcg (2,000 unit) capsule 50 mcg PO DAILY pantoprazole 40 mg tablet,delayed release (DR/EC) 40 mg PO BID Qty: 180 3RF Eliquis 5 mg tablet 5 mg PO BID Qty: 180 3RF nitroglycerin [Nitrostat] 0.4 mg tablet, sublingual 0.4 mg SUBLINGUAL Q5M PRN (Reason: chest pain) Qty: 20 11RF Rx Instructions: do not exceed 3 doses per episode pravastatin 20 mg tablet See Rx Instructions .ROUTE .COMPLEX Qty: 90 3RF Dose Instruction: TAKE 1 TABLET BY MOUTH EVERY DAY Rx Instructions: TAKE 1 TABLET BY MOUTH EVERY DAY levothyroxine 150 mcg tablet See Rx Instructions .ROUTE .COMPLEX Qty: 90 3RF Dose Instruction: TAKE 1 TABLET BY MOUTH EVERY DAY Rx Instructions: TAKE 1 TABLET BY MOUTH EVERY DAY spironolactone 25 mg tablet See Rx Instructions .ROUTE .COMPLEX Qty: 45 10RF Dose Instruction: take 1/2 tablet BY MOUTH EVERY DAY Rx Instructions: take 1/2 tablet BY MOUTH EVERY DAY metoprolol tartrate 25 mg tablet See Rx Instructions .ROUTE .COMPLEX Qty: 120 12RF Dose Instruction: TAKE 2 TABLETS BY MOUTH TWICE DAILY Rx Instructions: TAKE 2 TABLETS BY MOUTH TWICE DAILY digoxin 125 mcg (0.125 mg) tablet 125 mcg PO DAILY Qty: 30 11RF (DME) Premier Test Strip Strip See Rx Instructions .ROUTE .COMPLEX Qty: 100 3RF Dose Instruction: USE 1 STRIP TO CHECK GLUCOSE ONCE DAILY DX E11.9 Rx Instructions: USE 1 STRIP TO CHECK GLUCOSE ONCE DAILY DX E11.9 irbesartan 300 mg tablet See Rx Instructions .ROUTE .COMPLEX Qty: 90 10RF Dose Instruction: TAKE 1 TABLET BY MOUTH EVERY DAY Rx Instructions: TAKE 1 TABLET BY MOUTH EVERY DAY mometasone 50 mcg/actuation spray,non-aerosol See Rx Instructions .ROUTE .COMPLEX Qty: 17 3RF Dose Instruction: USE 2 SPRAYS in each nostril EVERY DAY as needed for allergies Rx Instructions: USE 2 SPRAYS in each nostril EVERY DAY as needed for allergies Discharge Orders: Discharge ED (Routine); Ordered 11/08/23 Ordered By: Ayla Lundberg Referrals: Steve Valladares MD [Primary Care Provider] - 1-3 days Discharge Diet: Advance as tolerated Discharge Activity: Resume usual activity Patient Instructions: Constipation (ED), Abdominal Pain (ED) Coding Level of Care Code ED Automatic Typewriter Inspector for Chg Fwd
[2023-11-08 17:03] LABS: Basophils # 0.1 10^3/uL (0.0-0.1); Basophils % 0.7 %; Eosinophils # 0.1 10^3/uL (0.0-0.8); Eosinophils % 0.7 %; Hematocrit 34.6 % (36-47); Lymphocytes # 1.3 10^3/uL (0.8-4.8); Lymphocytes % 14.7 %; Mean Corpuscular HGB Conc 31.2 g/dL (30-55); Mean Corpuscular Hemoglobin 24.7 pg (27-33); Mean Corpuscular Volume 79.2 fl (85-98); Mean Platelet Volume 10.3 fL (7.4-10.4); Monocytes # 1.2 10^3/uL (0.2-0.9); Monocytes % 13.3 %; Neutrophils # 6.37 10^3/uL (1.8-7.7); Neutrophils % 69.8 %; Nucleated Red Blood Cells % 0 %; Platelet Count 232 10^3/cmm (157-399); Red Blood Count 4.37 10^6/uL (3.85-5.65); Red Cell Distribution Width 15.7 % (12.1-15.1); White Blood Count 9.11 10^3/uL (3.29-11.43)
[2023-11-08] MEDS: lactulose oral liq 20 gm/30 mL UDC 30 GM PO (17:04)
[2023-11-08 17:05] VITALS: BP 122/64; PULSE 72; RESP 17; O2SAT 97
[2023-11-08 17:21] LABS: Alanine Aminotransferase 10 U/L (0-33); Albumin Level 3.8 g/dL (3.5-5.2); Alkaline Phosphatase 97 U/L (35-105); Anion Gap 15.4 (5-19); Aspartate Amino Transferase 18 U/L (0-32); Blood Urea Nitrogen 20 mg/dL (8-23); Calcium 8.8 mg/dL (8.5-10.5); Carbon Dioxide 26 mmol/L (22-29); Chloride 101 mmol/L (98-107); Globulin 3.1 g/dL (1.3-4.6); Glucose 155 mg/dL (65-115); Osmolality Calculated 292 mOsm/kg (285-295); Potassium 4.4 mmol/L (3.5-5.1); Sodium 138 mmol/L (136-145); Total Bilirubin 0.4 mg/dL (0.15-1.2); Total Protein 6.9 g/dL (6.6-8.7)
[2023-11-08 17:30] VITALS: BP 127/70; PULSE 70; O2SAT 93
[2023-11-08 18:00] VITALS: BP 134/79; PULSE 70; RESP 18; O2SAT 96
--- NOTE | 2023-11-09 07:42 | DCPLANNER ---
referral message sent to dr. garcia for er f/u referral
== END 2023-11-08 18:27 | disposition home or self-care (01) ==
PROVIDERS: Emergency Provider Emergency Medicine; PCP Family Medicine
DX: K59.00 Constipation, unspecified (principal); R10.9 Unspecified abdominal pain; Z79.82 Long term (current) use of aspirin; Z79.01 Long term (current) use of anticoagulants; Z79.4 Long term (current) use of insulin; E78.5 Hyperlipidemia, unspecified; Z86.73 Personal history of transient ischemic attack (TIA), and cerebral infarction without residual deficits; I10 Essential (primary) hypertension; Z95.0 Presence of cardiac pacemaker
CPT/HCPCS: 36415; 74018; 80053; 85025; 99284

== ENCOUNTER → 2023-11-13 16:36 | Outpatient (BNVA) | payer MEDICARE, OTHER, SELFPAY | PROVIDERS: PCP Family Medicine; Visit Provider Family Medicine | DX: R10.9 Unspecified abdominal pain (principal); R93.89 Abnormal findings on diagnostic imaging of other specified body structures; K59.00 Constipation, unspecified; R32 Unspecified urinary incontinence; N81.3 Complete uterovaginal prolapse; G43.909 Migraine, unspecified, not intractable, without status migrainosus; T50.B95A Adverse effect of other viral vaccines, initial encounter; R73.9 Hyperglycemia, unspecified; R19.5 Other fecal abnormalities; L56.9 Acute skin change due to ultraviolet radiation, unspecified; N39.0 Urinary tract infection, site not specified; E78.5 Hyperlipidemia, unspecified; I10 Essential (primary) hypertension; I48.91 Unspecified atrial fibrillation; I48.92 Unspecified atrial flutter; Z95.0 Presence of cardiac pacemaker | CPT/HCPCS: 83690; 85025 ==

== ENCOUNTER → 2023-11-14 11:14 | Outpatient (BNVA) | payer MEDICARE, OTHER, SELFPAY | PROVIDERS: PCP Family Medicine; Visit Provider Family Medicine | DX: N18.9 Chronic kidney disease, unspecified (principal); R10.9 Unspecified abdominal pain; K59.00 Constipation, unspecified; R32 Unspecified urinary incontinence; N81.3 Complete uterovaginal prolapse; G43.909 Migraine, unspecified, not intractable, without status migrainosus; T50.B95A Adverse effect of other viral vaccines, initial encounter; R73.9 Hyperglycemia, unspecified; R19.5 Other fecal abnormalities; L65.9 Nonscarring hair loss, unspecified; N39.0 Urinary tract infection, site not specified; E78.5 Hyperlipidemia, unspecified; I10 Essential (primary) hypertension; I48.91 Unspecified atrial fibrillation; I48.92 Unspecified atrial flutter; Z95.0 Presence of cardiac pacemaker | CPT/HCPCS: 83690; 85025 ==

== ENCOUNTER 2023-11-21 14:18 | Outpatient (CLI) | payer MEDICARE, OTHER, SELFPAY ==
[2023-11-21] MEDS: iohexol 350 mg/mL 500 mL Btl (per mL) IV (15:59)
[2023-11-21] MEDS: iohexol 350 mg/mL 100 mL Btl PO (16:00)
--- NOTE | 2023-11-21 16:15 | CT_ITS ---
WS: [id number] CT ABDOMEN AND PELVIS WITH CONTRAST HISTORY: Elevated lipase, abnormal abdominal x-ray, abdominal pain TECHNIQUE: Imaging performed of the abdomen and pelvis with IV contrast. Single phase imaging of the abdomen. Coronal and sagittal reformats are submitted. All CT scans at [facility] use at [facility] one of these dose optimization techniques: automated exposure control; mA and/or kV adjustment per patient size (includes targeted exams where dose is matched to clinical indication); or iterative re construction. IV CONTRAST: Omnipaque 350; 100 mL IV. Oral contrast: Yes. DLP: 414.18 mGy.cm COMPARISON: 11/19/2008 Lower thorax: There are a few small nodules and granulomas at the bases which are probably also prese nt in 2008 but better visualized today. Heart is enlarged with pacer wires. Moderate size hiatal radha ia. Liver/biliary system: Mildly enlarged liver with granulomata. No bile duct dilatation or mass. Gallbladder: Status post cholecystectomy. Pancreas: Mild diffuse atrophy. No pancreatic duct dilatation. Spleen: Normal with granulomata. Adrenal glands: Normal. Right kidney: Normal size kidney. Simple cyst upper pole 2.9 x 3.2 cm. No solid mass or obstruction. Left kidney: Small extrarenal pelvis. No solid mass or obstruction. No calyceal dilatation. Aorta: Mild atherosclerosis with no aneurysm. Mesenteric arteries are patent. Heavy calcification in the splenic artery. Lymphadenopathy: None. Free fluid: None. GI tract: Stomach is markedly distended with oral contrast. There are also food products noted within the distended stomach. There may be a component of gastroparesis as there is significant dilatation of the stomach. There is no small bowel obstruction. Moderate diffuse constipation. Negative appendix . No obstructing colonic lesion. Mild soft tissue thickening at the rectum. This is a difficult area to evaluate by CT. Abdominal wall: Unremarkable abdominal wall. No hernia. Pelvis: No free fluid or adenopathy within the pelvis. Prior hysterectomy. Minimally distended bladde r. Bones: Facet joint disease and disc disease throughout the lumbar spine. No destructive bone lesions. Sclerosis at the SI joints and facet joints at appears degenerative. No destructive bone lesions. CT/CT abdomen pelvis w con* [id number] IMPRESSION: 1. Marked distention of the stomach with oral contrast and food products. Due to the stomach distention there may be a component of gastroparesis. 2. Diffuse colonic constipation. 3. No adenopathy or free fluid. 4. Prior cholecystectomy and hysterectomy. 5. Mild hepatomegaly. 6. Simple cyst RIGHT kidney. 7. No destructive bone lesions. There are advanced degenerative changes in the spine with sclerosis at the SI joints and facet joints. 8. Mild fullness at the rectum. This is a difficult area to evaluate by CT. Th is area would easily be evaluated by rectal exam. 9. Atherosclerosis aorta and splenic artery.
== END 2023-11-21 14:19 | disposition home or self-care (01) ==
PROVIDERS: PCP Family Medicine; Visit Provider Family Medicine
DX: R74.8 Abnormal levels of other serum enzymes (principal); R93.89 Abnormal findings on diagnostic imaging of other specified body structures; R91.8 Other nonspecific abnormal finding of lung field; J84.10 Pulmonary fibrosis, unspecified; Z98.890 Other specified postprocedural states; K86.89 Other specified diseases of pancreas; D73.89 Other diseases of spleen; N28.1 Cyst of kidney, acquired; I70.8 Atherosclerosis of other arteries; K59.00 Constipation, unspecified; M47.816 Spondylosis without myelopathy or radiculopathy, lumbar region; M51.9 Unspecified thoracic, thoracolumbar and lumbosacral intervertebral disc disorder; G95.89 Other specified diseases of spinal cord; K31.89 Other diseases of stomach and duodenum; R16.0 Hepatomegaly, not elsewhere classified
CPT/HCPCS: 74177; Q9967

== ENCOUNTER → 2023-11-22 08:59 | Outpatient (BNVA) | payer MEDICARE, OTHER, SELFPAY | PROVIDERS: PCP Family Medicine; Referring Provider Emergency Medicine; Visit Provider Surgery | DX: R10.12 Left upper quadrant pain (principal) | CPT/HCPCS: 99204 ==

== ENCOUNTER → 2023-11-30 14:00 | Outpatient (BNVA) | payer MEDICARE, OTHER, SELFPAY | PROVIDERS: PCP Family Medicine; Visit Provider Nurse Practitioner Family | DX: L57.0 Actinic keratosis (principal); L82.0 Inflamed seborrheic keratosis; L98.8 Other specified disorders of the skin and subcutaneous tissue; L81.4 Other melanin hyperpigmentation; L72.0 Epidermal cyst; L57.8 Other skin changes due to chronic exposure to nonionizing radiation | CPT/HCPCS: 17000; 17110; 99213 ==

== ENCOUNTER 2024-01-10 14:46 | Emergency (ER) | payer MEDICARE, OTHER, SELFPAY ==
--- NOTE | 2024-01-10 14:48 | XR_ITS ---
WS: [id number] Portable AP upright chest, 01/10/2024 Clinical Data: weakness Comparison: Portable chest, 06/08/2021 Findings: No nodules, masses or effusions are seen. The heart is normal. The pulmonary vascularity is not increased. No pneumonia or pneumothorax is seen. The aortic arch shows minimal calcification wit h mild tortuosity. The diaphragms are flattened. There is a permanent pacemaker with the generator in the left axilla and the wires ending in the heart. XR/XR chest 1V portable [id number] Impression: Atherosclerosis and hyperinflation.
[2024-01-10 14:49] VITALS: BP 142/84; PULSE 86; RESP 20; TEMP 36.4; O2SAT 97
[2024-01-10 15:19] LABS: Basophils # 0.1 10^3/uL (0.0-0.1); Basophils % 1.1 %; Eosinophils # 0.3 10^3/uL (0.0-0.8); Eosinophils % 2.9 %; Hematocrit 39.7 % (36-47); Lymphocytes # 2.4 10^3/uL (0.8-4.8); Lymphocytes % 24.5 %; Mean Corpuscular Hemoglobin 24.3 pg (27-33); Mean Corpuscular Volume 78.3 fl (85-98); Mean Platelet Volume 10.2 fL (7.4-10.4); Monocytes # 0.8 10^3/uL (0.2-0.9); Neutrophils # 6.11 10^3/uL (1.8-7.7); Neutrophils % 62.8 %; Nucleated Red Blood Cells % 0 %; Platelet Count 327 10^3/cmm (157-399); Red Blood Count 5.07 10^6/uL (3.85-5.65); White Blood Count 9.73 10^3/uL (3.29-11.43)
--- NOTE | 2024-01-10 15:23 | W.ED.WEAKNES ---
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 This lasted for few minutes and then she is felt back to baseline blood pressure is normal now she denies any headache denies any chest pain denies any shortness of breath. Associated symptoms: Denies chest pain, chills, fever(s), headache(s), nausea or vomiting Review of Systems Const: Denies: fever(s), chills, body aches or change in appetite ENMT: Denies: throat pain or dental pain Card: Reports: pre-syncope; Denies: chest pain Resp: Denies: dyspnea GI: Denies: abdominal pain, nausea, vomiting or diarrhea Musc: Denies: neck pain or back pain Skin/Breast: Denies: rash Neuro: Denies: headache(s) PFSH ED PFSH: Medical History Hyperlipidemia TIA (transient ischemic attack) GERD (gastroesophageal reflux disease) Osteoarthritis PASTORA on CPAP Hypothyroidism Hypertension Atrial fibrillation and flutter Pacemaker Surgical History S/P cardiac pacemaker procedure S/P partial thyroidectomy S/P cholecystectomy S/P hysterectomy S/P knee surgery Family History Mother Stroke Son Diabetes Other Hypertension Social History Smoking and tobacco/nicotine status: unknown if used tobacco/nicotine Physical Exam Const: COMMON NORMALS: no acute distress, patient oriented x3 and healthy appearing HENMT: COMMON NORMALS: normocephalic and atraumatic HEAD & SCALP: normocephalic and atraumatic Eye: COMMON NORMALS: Equal, round and reactive pupils present and EOMs intact bilaterally PUPIL: Yes Equal, round and reactive pupils present Neck/C-Spine: COMMON NORMALS: full ROM and supple Chest: COMMONS NORMALS: normal inspection of the chest and normal palpation of entire chest wall Resp: COMMON NORMALS: normal respiratory effort, No retractions, No use of accessory muscles and clear to auscultation bilaterally AUSCULTATION: clear to auscultation bilaterally Cardio: COMMON NORMALS: regular rate, regular rhythm and No murmurs present (Cardio) RATE: regular rate RHYTHM: regular rhythm GI: COMMON NORMALS: Normal to inspection, nondistended, normoactive bowel sounds present, Soft to palpation, non-tender and no masses PALPATION: Yes Soft to palpation Extremity: COMMON NORMALS: normal to inspection and full ROM Neuro: COMMON NORMALS: patient oriented x3, moves all extremities and no focal motor deficits Psych: COMMON NORMALS: mental status grossly normal, Normal thought process present and cooperative THOUGHT PROCESS: Normal thought process present Skin: COMMON NORMALS: no rashes or lesions noted and no wounds GENERAL SKIN EXAM: no rashes or lesions noted Course Vital Signs: Vital signs: Vital Signs Temperature 97.5 F L 01/10/24 14:49 Pulse Rate 70 01/10/24 17:30 Respiratory Rate 16 01/10/24 17:00 Blood Pressure 149/79 01/10/24 17:30 Pulse Oximetry 95 01/10/24 17:30 Oxygen Delivery Me thod Room Air 01/10/24 17:30 MDM - Weakness Medical Decision Making Patient presents here with a near syncopal event she is well-appearing here she does have a UTI patient stable for discharge follow-up PCP return if worsening she understands agrees to plan Medical Records I reviewed the patient's medical records. Lab Data I reviewed the patient's lab results. 01/10/24 15:13 01/10/24 15:13 Radiology Impressions Chest X-Ray 01/10/24 14:48 Impression: Atherosclerosis and hyperinflation. Laboratory Results WBC 9.73 10^3/uL (3.29-11.43) 01/10/24 15:13 RBC 5.07 10^6/uL (3.85-5.65) 01/10/24 15:13 Hgb 12.30 g/dL (11.27-16.99) 01/10/24 15:13 Hct 39.7 % (36-47) 01/10/24 15:13 MCV 78.3 fl (85-98) L 01/10/24 15:13 MCH 24.3 pg (27-33) L 01/10/24 15:13 MCHC 31.0 g/dL (30-55) 01/10/24 15:13 RDW 16.0 % (12.1-15.1) H 01/10/24 15:13 Plt Count 327 10^3/cmm (157-399) 01/10/24 15:13 MPV 10.2 fL (7.4-10.4) 01/10/24 15:13 Neut % (Auto) 62.8 % 01/10/24 15:13 Lymph % (Auto) 24.5 % 01/10/24 15:13 [place] % (Auto) 8.0 % 01/10/24 15:13 Eos % (Auto) 2.9 % 01/10/24 15:13 Baso % (Auto) 1.1 % 01/10/24 15:13 Neut # (Auto) 6.11 10^3/uL (1.8-7.7) 01/10/24 15:13 Lymph # (Auto) 2.4 10^3/uL (0.8-4.8) 01/10/24 15:13 [place] # (Auto) 0.8 10^3/uL (0.2-0.9) 01/10/24 15:13 Eos # (Auto) 0.3 10^3/uL (0.0-0.8) 01/10/24 15:13 Baso # (Auto) 0.1 10^3/uL (0.0-0.1) 01/10/24 15:13 Nucleated RBC % (auto) 0 % 01/10/24 15:13 Nucleated RBCs # 0.0 /100WBC 01/10/24 15:13 Sodium 136 mmol/L (136-145) 01/10/24 15:13 Potassium 4.4 mmol/L (3.5-5.1) 01/10/24 15:13 Chloride 101 mmol/L (98-107) 01/10/24 15:13 Carbon Dioxide 23 mmol/L (22-29) 01/10/24 15:13 Anion Gap 16.4 (5-19) 01/10/24 15:13 BUN 20 mg/dL (8-23) 01/10/24 15:13 Creatinine 0.9 mg/dL (0.5-0.9) 01/10/24 15:13 GFR Calculation Not Reportable 01/10/24 15:13 Glucose 179 mg/dL (65-115) H 01/10/24 15:13 Calculated Osmolality 289 mOsm/kg (285-295) 01/10/24 15:13 Calcium 9.2 mg/dL (8.5-10.5) 01/10/24 15:13 Magnesium 1.8 mg/dL (1.7-2.3) 01/10/24 15:13 Total Bilirubin 0.5 mg/dL (0.15-1.2) 01/10/24 15:13 AST 16 U/L (0-32) 01/10/24 15:13 ALT 14 U/L (0-33) 01/10/24 15:13 Alkaline Phosphatase 95 U/L (35-105) 01/10/24 15:13 Troponin T Baseline 11 ng/L (0-10) H 01/10/24 15:13 Troponin T 120 Minute 6.00 ng/L (0-10) 01/10/24 17:18 Delta Troponin T -5.00 ABS# (0-10) L 01/10/24 17:18 Total Protein 7.4 g/dL (6.6-8.7) 01/10/24 15:13 Albumin 4.3 g/dL (3.5-5.2) 01/10/24 15:13 Globulin 3.1 g/dL (1.3-4.6) 01/10/24 15:13 Urine Color Yellow (Yellow) 01/10/24 15:35 Urine Appearance Turbid (CLEAR) A 01/10/24 15:35 Urine pH 6.0 (5-7) 01/10/24 15:35 Ur Specific [place] 1.012 (1.005-1.030) 01/10/24 15:35 Urine Protein Trace (Negative) A 01/10/24 15:35 Urine Glucose (UA) Negative (Normal) 01/10/24 15:35 Urine Ketones Negative (Negative) 01/10/24 15:35 Urine Blood 3+ (Negative) A 01/10/24 15:35 Urine Nitrate Positive (Negative) A 01/10/24 15:35 Urine Bilirubin Negative (Negative) 01/10/24 15:35 Urine Urobilinogen 1.0 mg/dL (Negative) 01/10/24 15:35 Ur Leukocyte Esterase 3+ (Negative) A 01/10/24 15:35 Urine RBC 21-50 /hpf (0-2) 01/10/24 15:35 Urine WBC >100 /hpf (0-5) 01/10/24 15:35 Ur Squamous Epith Cells 6-10 /hpf (0-5) 01/10/24 15:35 Amorphous Sediment Not Reportable 01/10/24 15:35 Urine Bacteria Exceeds /hpf (NONE) 01/10/24 15:35 Hyaline Casts 18.53 /lpf 01/10/24 15:35 All radiology interpretation(s) finalized by discharge EKG Data EKG 1: I personally reviewed and interpreted this EKG as follows: EKG interpretation date: 01/10/24 EKG interpretation time: 15:25 Interpretation: paced hr [address] elevation qrs 165 qtc 439 EKG 2: I personally reviewed and interpreted this EKG as follows: EKG interpretation date: 01/10/24 EKG interpretation time: 17:23 Interpretation: paced hr [address] elevation qrs 150 qtc 424 Discharge Plan Discharge Patient Disposition: Home Clinical Impression: Acute cystitis, Near syncope Condition: Stable Prescriptions: New cephalexin 500 mg capsule 500 mg PO TID 7 Days Qty: 21 0RF No Action aspirin [Adult Low Dose Aspirin] 81 mg tablet,delayed release (DR/EC) 81 mg PO DAILY magnesium oxide 400 mg magnesium capsule 400 mg PO DAILY diphenhydramine HCl [Benadryl Allergy] 25 mg tablet 25 mg PO TID PRN acetaminophen [Tylenol Arthritis Pain] 650 mg tablet extended release 1,300 mg PO Q12H cholecalciferol (vitamin D3) 50 mcg (2,000 unit) capsule 50 mcg PO DAILY Eliquis 5 mg tablet 5 mg PO BID Qty: 180 3RF nitroglycerin [Nitrostat] 0.4 mg tablet, sublingual 0.4 mg SUBLINGUAL Q5M PRN (Reason: chest pain) Qty: 20 11RF Rx Instructions: do not exceed 3 doses per episode pravastatin 20 mg tablet See Rx Instructions .ROUTE .COMPLEX Qty: 90 3RF Dose Instruction: TAKE 1 TABLET BY MOUTH EVERY DAY Rx Instructions: TAKE 1 TABLET BY MOUTH EVERY DAY levothyroxine 150 mcg tablet See Rx Instructions .ROUTE .COMPLEX Qty: 90 3RF Dose Instruction: TAKE 1 TABLET BY MOUTH EVERY DAY Rx Instructions: TAKE 1 TABLET BY MOUTH EVERY DAY (DME) Premier Test Strip Strip See Rx Instructions .ROUTE .COMPLEX Qty: 100 3RF Dose Instruction: USE 1 STRIP TO CHECK GLUCOSE ONCE DAILY DX E11.9 Rx Instructions: USE 1 STRIP TO CHECK GLUCOSE ONCE DAILY DX E11.9 irbesartan 300 mg tablet See Rx Instructions .ROUTE .COMPLEX Qty: 90 10RF Dose Instruction: TAKE 1 TABLET BY MOUTH EVERY DAY Rx Instructions: TAKE 1 TABLET BY MOUTH EVERY DAY mometasone 50 mcg/actuation spray,non-aerosol See Rx Instructions .ROUTE .COMPLEX Qty: 17 3RF Dose Instruction: USE 2 SPRAYS in each nostril EVERY DAY as needed for allergies Rx Instructions: USE 2 SPRAYS in each nostril EVERY DAY as needed for allergies pantoprazole 40 mg tablet,delayed release (DR/EC) 40 mg PO BID Qty: 180 3RF digoxin 125 mcg (0.125 mg) tablet 125 mcg PO DAILY Qty: 30 11RF metoprolol tartrate 25 mg tablet See Rx Instructions .ROUTE .COMPLEX Qty: 120 12RF Dose Instruction: TAKE 2 TABLETS BY MOUTH TWICE DAILY Rx Instructions: TAKE 2 TABLETS BY MOUTH TWICE DAILY spironolactone 25 mg tablet See Rx Instructions .ROUTE .COMPLEX Qty: 45 10RF Dose Instruction: take 1/2 tablet BY MOUTH EVERY DAY Rx Instructions: take 1/2 tablet BY MOUTH EVERY DAY Miralax 17 gram powder in packet 17 g PO DAILY Qty: 14 0RF Golytely 236-22.74-6.74 -5.86 gram recon soln 240 ml PO Q10M Qty: 4000 0RF Rx Instructions: until fecal effluent is clear Discharge Orders: Discharge ED (Routine); Ordered 01/10/24 Ordered By: Ayla Lundberg Referrals: Steve Valladares MD [Primary Care Provider] - Discharge Diet: Advance as tolerated Discharge Activity: Resume usual activity Patient Instructions: Urinary Tract Infection in Women (ED) Coding Level of Care Code ED Marine Machinist for Ai Matos
--- NOTE | 2024-01-10 15:25 | ECG_ITS ---
[facility] Test Date: 2024-01-10 Pat Name: Jenifer Osborne Department: Room: Gender: Female Invoicing Specialist: : 1940 Requested By: Ayla Lundberg Order Number: [id number] Cecile MD: Monty Shell M.D. Measurements Intervals [place] Rate: 71 P: 115 [place]: 180 QRS: -66 QRSD: 165 T: 86 QT: 417 QTc: 454 Interpretive Statements ELECTRONIC ATRIAL PACEMAKER ELECTRONIC VENTRICULAR PACEMAKER Compared to ECG 06/08/2021 03:55:32 No significant changes Electronically Signed On 01-10-2024 17:13:12 CDT by Monty Shell M.D. [id number]
[2024-01-10 15:41] VITALS: BP 147/78; PULSE 86; RESP 14; O2SAT 97
[2024-01-10 15:43] LABS: Alanine Aminotransferase 14 U/L (0-33); Albumin Level 4.3 g/dL (3.5-5.2); Alkaline Phosphatase 95 U/L (35-105); Anion Gap 16.4 (5-19); Aspartate Amino Transferase 16 U/L (0-32); Blood Urea Nitrogen 20 mg/dL (8-23); Calcium 9.2 mg/dL (8.5-10.5); Carbon Dioxide 23 mmol/L (22-29); Chloride 101 mmol/L (98-107); Creatinine Clr Calc Pharmacy 49.3788; Globulin 3.1 g/dL (1.3-4.6); Glucose 179 mg/dL (65-115); Magnesium 1.8 mg/dL (1.7-2.3); Osmolality Calculated 289 mOsm/kg (285-295); Potassium 4.4 mmol/L (3.5-5.1); Sodium 136 mmol/L (136-145); Total Bilirubin 0.5 mg/dL (0.15-1.2); Total Protein 7.4 g/dL (6.6-8.7)
[2024-01-10 15:59] LABS: Charge for UA Resulting for Rev
[2024-01-10 16:00] VITALS: BP 125/66; PULSE 85; O2SAT 95
[2024-01-10 16:12] LABS: Troponin(5th) Baseline 11 ng/L (0-10)
[2024-01-10 16:14] LABS: Bilirubin Urine Negative (Negative); Blood Urine 3+ (Negative); Glucose Urine UA Negative (Normal); Ketones Urine Negative (Negative); Leukocyte Esterase Urine 3+ (Negative); Nitrate Urine Positive (Negative); Protein Urine Trace (Negative); Specific Gravity, Urine 1.012 (1.005-1.030); Urine Appearance Turbid (CLEAR); Urine Color Yellow (Yellow)
[2024-01-10 16:19] LABS: Bacteria Urine EXCEEDS /hpf; Hyaline Casts Urine 18.53 /lpf; RBC Urine 21-50 /hpf (0-2); WBC Urine >100 /hpf (0-5)
[2024-01-10 16:41] LABS: Add Urine Culture? Yes
[2024-01-10 17:00] VITALS: BP 126/71; PULSE 72; RESP 16; O2SAT 96
--- NOTE | 2024-01-10 17:20 | ECG_ITS ---
[facility] Test Date: 2024-01-10 Pat Name: Jenifer Osborne Department: Room: Gender: Female Medical Services Manager: : 1940 Requested By: Ayla Lundberg Order Number: [id number] Cecile MD: Monty Shell M.D. Measurements Intervals [place] Rate: 69 P: 114 SD: 195 QRS: -67 QRSD: 150 T: 87 QT: 405 QTc: 436 Interpretive Statements ELECTRONIC ATRIAL PACEMAKER ELECTRONIC VENTRICULAR PACEMAKER Compared to ECG 01/10/2024 15:25:46 No significant changes Electronically Signed On 01-11-2024 9:07:24 CDT by Monty Shell M.D. [id number]
[2024-01-10 17:30] VITALS: BP 149/79; PULSE 70; O2SAT 95
[2024-01-10] MEDS: cefTRIAXone 1,000 mg SDV 1000 MG IVP (17:37)
[2024-01-10 18:25] VITALS: BP 160/85; PULSE 70; O2SAT 95
== END 2024-01-10 18:26 | disposition home or self-care (01) ==
PROVIDERS: Emergency Provider Emergency Medicine; PCP Family Medicine
DX: R55 Syncope and collapse (principal); N30.00 Acute cystitis without hematuria; Z79.82 Long term (current) use of aspirin; Z79.01 Long term (current) use of anticoagulants; E78.5 Hyperlipidemia, unspecified; Z86.73 Personal history of transient ischemic attack (TIA), and cerebral infarction without residual deficits; I10 Essential (primary) hypertension; Z95.0 Presence of cardiac pacemaker
CPT/HCPCS: 36415; 71045; 80053; 81003; 81015; 83735; 84484; 85025; 87077; 87086; 87186; 93005; 96374; 99285; J0696

== ENCOUNTER → 2024-01-15 16:12 | Outpatient (BNVA) | payer MEDICARE, OTHER, SELFPAY | PROVIDERS: PCP Family Medicine; Visit Provider Family Medicine | DX: R73.9 Hyperglycemia, unspecified (principal) | CPT/HCPCS: 83036 ==

== ENCOUNTER → 2024-01-17 13:43 | Outpatient (BNVA) | payer MEDICARE, OTHER, SELFPAY | PROVIDERS: PCP Family Medicine; Visit Provider Internal Medicine | DX: Z45.010 Encounter for checking and testing of cardiac pacemaker pulse generator [battery] (principal) | CPT/HCPCS: 93296 ==

== ENCOUNTER → 2024-01-25 12:18 | Outpatient (BNVA) | payer MEDICARE, OTHER, SELFPAY | PROVIDERS: PCP Family Medicine; Visit Provider Clinical Nurse Specialist Adult Health | DX: N39.0 Urinary tract infection, site not specified (principal); I48.91 Unspecified atrial fibrillation; I48.92 Unspecified atrial flutter | CPT/HCPCS: 80053; 80162; 81000; 82728; 83540; 85025; 86140; 87086 ==

== ENCOUNTER → 2024-02-07 14:39 | Outpatient (BNVA) | payer MEDICARE, OTHER, SELFPAY | PROVIDERS: PCP Family Medicine; Visit Provider Internal Medicine | DX: I48.91 Unspecified atrial fibrillation (principal); I10 Essential (primary) hypertension; I48.92 Unspecified atrial flutter; Z95.0 Presence of cardiac pacemaker | CPT/HCPCS: 99214 ==

== ENCOUNTER → 2024-02-15 15:06 | Outpatient (BNVA) | payer MEDICARE, OTHER, SELFPAY | PROVIDERS: PCP Family Medicine; Visit Provider Family Medicine | DX: N39.0 Urinary tract infection, site not specified (principal) | CPT/HCPCS: 81015 ==

== ENCOUNTER → 2024-04-16 12:49 | Outpatient (BNVA) | payer MEDICARE, OTHER, SELFPAY | PROVIDERS: PCP Family Medicine; Visit Provider Family Medicine | DX: I10 Essential (primary) hypertension (principal); E11.65 Type 2 diabetes mellitus with hyperglycemia; I48.91 Unspecified atrial fibrillation; I48.92 Unspecified atrial flutter; E78.5 Hyperlipidemia, unspecified; R53.83 Other fatigue | CPT/HCPCS: 80053; 80061; 82607; 83036; 83735; 84443; 85025 ==

== ENCOUNTER → 2024-04-24 11:17 | Outpatient (BNVA) | payer MEDICARE, OTHER, SELFPAY | PROVIDERS: PCP Family Medicine; Visit Provider Dermatology | DX: D37.01 Neoplasm of uncertain behavior of lip (principal); L81.4 Other melanin hyperpigmentation; L72.0 Epidermal cyst | CPT/HCPCS: 40490; 99213 ==

== ENCOUNTER → 2024-05-13 12:53 | Outpatient (BNVA) | payer MEDICARE, OTHER, SELFPAY | PROVIDERS: PCP Family Medicine; Visit Provider Dermatology | DX: D18.01 Hemangioma of skin and subcutaneous tissue (principal); D10.0 Benign neoplasm of lip; Z48.817 Encounter for surgical aftercare following surgery on the skin and subcutaneous tissue | CPT/HCPCS: 99213 ==

== ENCOUNTER → 2024-06-19 12:58 | Outpatient (BNVA) | payer MEDICARE, OTHER, SELFPAY | PROVIDERS: PCP Family Medicine; Visit Provider Dermatology | DX: D18.01 Hemangioma of skin and subcutaneous tissue (principal); L92.3 Foreign body granuloma of the skin and subcutaneous tissue; L56.8 Other specified acute skin changes due to ultraviolet radiation | CPT/HCPCS: 17000; 99213 ==

== ENCOUNTER → 2024-08-07 09:15 | Outpatient (BNVA) | payer MEDICARE, OTHER, SELFPAY | PROVIDERS: PCP Family Medicine; Visit Provider Internal Medicine | DX: Z45.018 Encounter for adjustment and management of other part of cardiac pacemaker (principal) | CPT/HCPCS: 93296 ==

== ENCOUNTER → 2024-10-21 16:23 | Outpatient (BNVA) | payer MEDICARE, OTHER, SELFPAY | PROVIDERS: PCP Family Medicine; Visit Provider Family Medicine | DX: I10 Essential (primary) hypertension (principal); E78.5 Hyperlipidemia, unspecified; R73.9 Hyperglycemia, unspecified; I48.91 Unspecified atrial fibrillation; Z95.0 Presence of cardiac pacemaker | CPT/HCPCS: 80053; 83036; 83880; 84443; 85025 ==

== ENCOUNTER 2024-11-06 14:39 | Outpatient (CLI) | payer MEDICARE, OTHER, SELFPAY ==
--- NOTE | 2024-11-06 14:42 | MM_ITS ---
WS: [id number] BILATERAL 3D TOMOSYNTHESIS DIGITAL SCREENING MAMMOGRAPHY WITH CAD CLINICAL INFORMATION: SCREEN HISTORY: Screening mammogram. No current complaints. COMPARISON: 2023 TECHNIQUE: Bilateral CC and MLO views. FINDINGS: The breasts are composed of heterogeneous fibroglandular density tissue, which can limit the detection of small underlying mass lesions. No suspicious mass, asymmetry, calcifications, or architectural distortion. No evidence of malignancy. Vascular calcification. Punctate and lucent centered calcifications. Cardiac pacer. Stable nodular densities bilaterally. MM/MM [facility] tomosynthesis [id number] IMPRESSION: DENSITY: The breasts are heterogeneously dense, which may obscure small masses. BI-RADS: 2 - Benign FOLLOW UP: 1 Year Follow-up Recommend return to annual screening mammography.
== END 2024-11-06 14:40 | disposition home or self-care (01) ==
PROVIDERS: PCP Family Medicine; Visit Provider Family Medicine
DX: Z12.31 Encounter for screening mammogram for malignant neoplasm of breast (principal); R92.333 Mammographic heterogeneous density, bilateral breasts; R92.1 Mammographic calcification found on diagnostic imaging of breast; Z96.89 Presence of other specified functional implants; N64.89 Other specified disorders of breast
CPT/HCPCS: 77063; 77067

== ENCOUNTER → 2024-11-19 13:59 | Outpatient (BNVA) | payer MEDICARE, OTHER, SELFPAY | PROVIDERS: PCP Family Medicine; Visit Provider Family Medicine | DX: N18.9 Chronic kidney disease, unspecified (principal); R53.83 Other fatigue | CPT/HCPCS: 84443; 85025 ==

== ENCOUNTER → 2024-12-02 15:33 | Outpatient (BNVA) | payer MEDICARE, OTHER, SELFPAY | PROVIDERS: PCP Family Medicine; Visit Provider Nurse Practitioner Family | DX: L81.4 Other melanin hyperpigmentation (principal); L57.8 Other skin changes due to chronic exposure to nonionizing radiation; L43.8 Other lichen planus; L57.0 Actinic keratosis | CPT/HCPCS: 17000; 99214 ==

== ENCOUNTER → 2025-01-15 09:26 | Outpatient (BNVA) | payer MEDICARE, OTHER, SELFPAY | PROVIDERS: PCP Family Medicine; Visit Provider Internal Medicine Cardiovascular Disease | DX: Z45.018 Encounter for adjustment and management of other part of cardiac pacemaker (principal) | CPT/HCPCS: 93296 ==

== ENCOUNTER → 2025-01-27 15:19 | Outpatient (BNVA) | payer MEDICARE, OTHER, SELFPAY | PROVIDERS: PCP Family Medicine; Visit Provider Nurse Practitioner Family | DX: L81.4 Other melanin hyperpigmentation (principal); L57.8 Other skin changes due to chronic exposure to nonionizing radiation; L43.8 Other lichen planus; R20.2 Paresthesia of skin; L57.0 Actinic keratosis | CPT/HCPCS: 17000; 99213 ==

== ENCOUNTER → 2025-02-06 15:02 | Outpatient (BNVA) | payer MEDICARE, OTHER, SELFPAY | PROVIDERS: PCP Family Medicine; Visit Provider Internal Medicine Cardiovascular Disease | DX: I48.91 Unspecified atrial fibrillation (principal); I48.92 Unspecified atrial flutter; I10 Essential (primary) hypertension; Z95.0 Presence of cardiac pacemaker; Z79.82 Long term (current) use of aspirin; Z79.01 Long term (current) use of anticoagulants | CPT/HCPCS: 99214 ==

== ENCOUNTER 2025-02-18 00:16 | Emergency (ER) | payer MEDICARE, OTHER, SELFPAY ==
[2025-02-18 00:16] VITALS: BP 181/99; PULSE 87; RESP 16; TEMP 36.6; O2SAT 97; BMI 29.9
--- OUTSIDE RECORDS SUMMARY | 2025-02-18 00:24 | XMS_ITS | Patient Health Record ---
Author Organization [facility] Address [address] [place] [address] Care Team Providers Care Senior Oracle Adf Developer Name Role Phone Steve Valladares Primary Care Provider Matthew Barajas Unavailable [phone] MIKAYLA MOTLEY Unavailable Unavailable Reason For Referral No Information Problems Problem Type SNOMED Code ICD Code Onset Dates Problem Status W/U Status Risk Notes Problem Benign essential hypertension (7085851) Essential hypertension, benign (401.1) 03/24/20 11 Active confirmed [id number] -Snomed Description :Benign essential hypertensio n, NOS Problem Generalized osteoarthrosis (695115381) Osteoarthrosis , generalized (715.0) 03/24/20 11 Active confirmed [id number] - Problem Syncope and collapse (276704001) Syncope and collapse (780.2) 03/24/20 11 Active confirmed [id number] -Snomed Description :Syncope and collapse Plan Of Treatment No Information Insurance Providers Payer Name Payer Address Payer Phone Subscriber Number Group Number Insured Name Patient Relationship to Insured Coverage Start Date Coverage End Date [place] Medicare [address] [place]IMMY [place]AO [phone] [id number] MAURICIO ORTIZ Self - patient is the insured 5 [place] [employer] [address] [address] [place]ORENC[place] DUNLAP [phone] [id number] MAURICIO ORTIZ Self - patient is the insured 1 [facility] [address] [address] [place] [address] [id number] ALEJANDRO ORTIZ Spouse - patient is the spouse of the insured
--- NOTE | 2025-02-18 00:25 | CTR_ITS ---
PROCEDURE INFORMATION: Exam: CT Head Without Contrast Exam date and time: 02/18/2025 12:30 AM Age: 84 years old Clinical indication: Injury or trauma; Fall; Abrasion; Forehead; Additional info: Head injury TECHNIQUE: Imaging protocol: Computed tomography of the head without contrast. Radiation optimization: All CT scans at this facility use at least one of these dose optimization techniques: automated exposure control; mA and/or kV adjustment per patient size (includes targeted exams where dose is matched to clinical indication); or iterative reconstruction. COMPARISON: CT head wo con* [id number] 10/13/2021 12:01 PM RADIATION DOSE METRICS: Total DLP (mGy-cm): 1134.6 FINDINGS: Brain: There is tvtq-ls-ttolxqfo cerebral atrophy. There are lwvh-wz-xweazoqh deep white matter microangiopathic ischemic changes. No acute hemorrhage is identified. No mass or mass effect is identified. Cerebral ventricles: Moderately dilated ventricles secondary to atrophy. Paranasal sinuses: The paranasal sinuses are clear. Mastoid air cells: The mastoid air cells are clear. Bones: No acute osseous abnormalities are seen. Soft tissues: Large right frontal scalp hematoma. CT/CT head wo con* [id number] IMPRESSION: 1. No acute intracranial pathology. 2. Senescent changes.
--- NOTE | 2025-02-18 00:25 | CTR_ITS ---
PROCEDURE INFORMATION: Exam: CT Cervical Spine Without Contrast Exam date and time: 02/18/2025 12:30 AM Age: 84 years old Clinical indication: Injury or trauma; Fall; Blunt trauma TECHNIQUE: Imaging protocol: Computed tomography of the cervical spine without contrast. Radiation optimization: All CT scans at this facility use at least one of these dose optimization techniques: automated exposure control; mA and/or kV adjustment per patient size (includes targeted exams where dose is matched to clinical indication); or iterative reconstruction. COMPARISON: CT head wo con* [id number] 10/13/2021 12:01 PM RADIATION DOSE METRICS: Total DLP (mGy-cm): 176.3 FINDINGS: Bones: Trace anterolisthesis of C4 on C5. Alignment is otherwise intact. No evidence of acute fracture. Pxpbofqa-rh-xksmqf degenerative change. Lungs: Scattered micro nodules in the apices measuring up to 3 mm. Soft tissues: The soft tissues are within normal limits. CT/CT cervical spin wo con* [id number] IMPRESSION: No evidence of acute fracture. COMMENTS: For patients at low risk (minimal or absent history of smoking and of other known risk factors), no routine follow-up is indicated. For patients at high risk (history of smoking or of other known risk factors), consider optional CT Chest at 12 months. (Reference: Gregorio) REFERENCES: Gregorio Pimentel et al. Guidelines for Management of Incidental Pulmonary Nodules Detected on CT Images: From the Fleischner Society 2017. Radiology. 2017;284(1):228-243.
--- NOTE | 2025-02-18 00:26 | W.ED.FALL ---
HPI - Fall General: Chief Complaint: Fall Stated Complaint: FALL Time Seen by Provider: 02/18/25 00:16 Source: patient and EMS Limitations: no limitations History of Present Illness: 84-year-old female is here after a fall at home. She states she had tripped and fell hit her head does have a hematoma right forehead she unsure if she had LOC she does complain headache. She denies any other injuries denies of any extremity pain Associated symptoms-after fall: Reports headache(s); Denies abdominal pain, chest pain or neck pain Related Data Home Medications ?Medication ?Instructions ?Recorded ?Confirmed aspirin 81 mg tablet,delayed 81 mg PO DAILY 10/28/19 02/06/25 release (Adult Low Dose Aspirin) magnesium oxide 400 mg PO DAILY 10/28/19 02/06/25 diphenhydramine HCl 25 mg tablet 25 mg PO TID PRN 01/26/21 02/06/25 (Benadryl Allergy) acetaminophen 650 mg 1,300 mg PO Q12H 08/03/22 02/06/25 tablet,extended release (Tylenol Arthritis Pain) cholecalciferol (vitamin D3) 50 50 mcg PO DAILY 08/03/22 02/06/25 mcg (2,000 unit) capsule Previous Rx's ?Medication ?Instructions ?Recorded peg 3350-electrolytes 236 240 ml PO Q10M #4,000 mL 11/08/23 gram-22.74 gram-6.74 gram-5.86 gram solution (Golytely) polyethylene glycol 3350 17 gram 17 g PO DAILY #14 ea 11/08/23 oral powder packet (Miralax) blood sugar diagnostic (Premier #100 ea 07/22/24 Test Strip) mometasone 50 mcg/actuation nasal See Rx Instructions .Route 08/09/24 spray .COMPLEX #17 grams Magic Mouth wash See Rx Instructions .Route 10/21/24 .COMPLEX #10 oz digoxin 125 mcg (0.125 mg) tablet 125 mcg PO DAILY #30 tabs 10/21/24 levothyroxine 150 mcg tablet See Rx Instructions .Route 10/21/24 .COMPLEX #90 tabs pantoprazole 40 mg tablet,delayed 40 mg PO BID #180 tabs 10/21/24 release pravastatin 20 mg tablet See Rx Instructions .Route 10/21/24 .COMPLEX #90 tabs apixaban 5 mg tablet (Eliquis) See Rx Instructions .Route 10/31/24 .COMPLEX #180 tabs irbesartan 300 mg tablet See Rx Instructions .Route 10/31/24 .COMPLEX #90 tabs metoprolol tartrate 50 mg tablet 50 mg PO BID #60 tabs 01/21/25 nitroglycerin 0.4 mg sublingual 0.4 mg sublingual Q5M PRN chest 01/21/25 tablet (Nitrostat) pain #20 tabs spironolactone 25 mg tablet See Rx Instructions .Route 01/21/25 .COMPLEX #45 tabs Allergies Allergy/AdvReac Type Severity Reaction Status Date / Time amlodipine (From Norvasc) Allergy Unknown Unknown Verified 02/06/25 15:06 amoxicillin Allergy Unknown Unknown Verified 02/06/25 15:06 atenolol (From Tenormin) Allergy Unknown Unknown Verified 02/06/25 15:06 celecoxib (From Celebrex) Allergy Unknown Unknown Verified 02/06/25 15:06 lisinopril (From Zestril) Allergy Unknown Unknown Verified 02/06/25 15:06 morphine Allergy Unknown Unknown Verified 02/06/25 15:06 nifedipine (From Procardia) Allergy Unknown Unknown Verified 02/06/25 15:06 Influenza Virus Vaccines Allergy ALGY-Redness Verified 02/06/25 15:06 of Skin Review of Systems Const: Denies: fever(s), chills, body aches or change in appetite Eyes: Denies: blurry vision or eye discomfort ENMT: Denies: throat pain or dental pain Card: Denies: chest pain Resp: Denies: dyspnea GI: Denies: abdominal pain, nausea, vomiting or diarrhea Musc: Denies: neck pain or back pain Skin/Breast: Denies: rash Neuro: Reports: headache(s) PFSH ED PFSH: Medical History Lichen planus of tongue Hyperlipidemia TIA (transient ischemic attack) GERD (gastroesophageal reflux disease) Osteoarthritis PASTORA on CPAP Hypothyroidism Hypertension Atrial fibrillation and flutter Pacemaker Surgical History S/P cardiac pacemaker procedure S/P partial thyroidectomy S/P cholecystectomy S/P hysterectomy S/P knee surgery Family History Mother Stroke Son Diabetes Other Hypertension Social History Smoking and tobacco/nicotine status: never used tobacco/nicotine Physical Exam Const: COMMON NORMALS: no acute distress, patient oriented x3 and healthy appearing HENMT: COMMON NORMALS: normocephalic HEAD & SCALP: normocephalic OTHER: Hematoma noted right forehead with 2 cm superficial lac Eye: COMMON NORMALS: Equal, round and reactive pupils present and EOMs intact bilaterally PUPIL: Yes Equal, round and reactive pupils present Neck/C-Spine: COMMON NORMALS: full ROM and supple Chest: COMMONS NORMALS: normal inspection of the chest and normal palpation of entire chest wall Resp: COMMON NORMALS: normal respiratory effort, No retractions, No use of accessory muscles and clear to auscultation bilaterally AUSCULTATION: clear to auscultation bilaterally Cardio: COMMON NORMALS: regular rate, regular rhythm and No murmurs present (Cardio) RATE: regular rate RHYTHM: regular rhythm GI: COMMON NORMALS: Normal to inspection, nondistended, normoactive bowel sounds present, Soft to palpation, non-tender and no masses PALPATION: Yes Soft to palpation Extremity: COMMON NORMALS: normal to inspection and full ROM Neuro: COMMON NORMALS: patient oriented x3, moves all extremities and no focal motor deficits Psych: COMMON NORMALS: mental status grossly normal, Normal thought process present and cooperative THOUGHT PROCESS: Normal thought process present Skin: COMMON NORMALS: no rashes or lesions noted and no wounds GENERAL SKIN EXAM: no rashes or lesions noted Procedures Laceration Laceration 1: Site: face Side (If applicable): right Size (cm): 2 Description: linear Depth: simple, single layer Pre-repair: wound explored and irrigated extensively Skin layer closed with: other (dermabond) Course Vital Signs: Vital signs: Vital Signs Temperature 97.9 F 02/18/25 00:16 Pulse Rate 73 02/18/25 01:11 Respiratory Rate 16 02/18/25 00:16 Blood Pressure 162/80 02/18/25 01:11 Pulse Oximetry 99 02/18/25 01:11 Oxygen Delivery Me thod Room Air 02/18/25 00:16 MDM - Fall Medical Decision Making Patient presents here with head injury after a fall did have a small laceration repaired with tissue adhesive imaging here is in normal patient stable for discharge follow-up PCP return if worsening. Medical Records I reviewed the patient's medical records. Lab Data Radiology Impressions Cervical Spine CT 02/18/25 00:25 IMPRESSION: No evidence of acute fracture. COMMENTS: For patients at low risk (minimal or absent history of smoking and of other known risk factors), no routine follow-up is indicated. For patients at high risk (history of smoking or of other known risk factors), consider optional CT Chest at 12 months. (Reference: Gregorio) REFERENCES: Gregorio Pimentel et al. Guidelines for Management of Incidental Pulmonary Nodules Detected on CT Images: From the Fleischner Society 2017. Radiology. 2017;284(1):228-243. Head CT 02/18/25 00:25 IMPRESSION: 1. No acute intracranial pathology. 2. Senescent changes. All radiology interpretation(s) finalized by discharge Discharge Plan Discharge Patient Disposition: Home Clinical Impression: Head injury, Laceration of head, Fall Condition: Stable Prescriptions: No Action aspirin [Adult Low Dose Aspirin] 81 mg tablet,delayed release (DR/EC) 81 mg PO DAILY magnesium oxide 400 mg magnesium capsule 400 mg PO DAILY diphenhydramine HCl [Benadryl Allergy] 25 mg tablet 25 mg PO TID PRN (DME) Premier Test Strip Strip See Rx Instructions .ROUTE .COMPLEX Qty: 100 3RF Dose Instruction: USE 1 STRIP TO CHECK GLUCOSE ONCE DAILY DX E11.9 Rx Instructions: USE 1 STRIP TO CHECK GLUCOSE ONCE DAILY DX E11.9 Magic Mouth wash See Rx Instructions .ROUTE .COMPLEX Qty: 10 11RF Rx Instructions: Mix equal parts Lidocaine 1%/ Maalox/ Benadryl. Swish and spit four times a day; digoxin 125 mcg (0.125 mg) tablet 125 mcg PO DAILY Qty: 30 11RF pantoprazole 40 mg tablet,delayed release (DR/EC) 40 mg PO BID Qty: 180 3RF pravastatin 20 mg tablet See Rx Instructions .ROUTE .COMPLEX Qty: 90 3RF Dose Instruction: TAKE 1 TABLET BY MOUTH EVERY DAY Rx Instructions: TAKE 1 TABLET BY MOUTH EVERY DAY levothyroxine 150 mcg tablet See Rx Instructions .ROUTE .COMPLEX Qty: 90 3RF Dose Instruction: TAKE 1 TABLET BY MOUTH EVERY DAY Rx Instructions: TAKE 1 TABLET BY MOUTH EVERY DAY acetaminophen [Tylenol Arthritis Pain] 650 mg tablet extended release 1,300 mg PO Q12H cholecalciferol (vitamin D3) 50 mcg (2,000 unit) capsule 50 mcg PO DAILY metoprolol tartrate 50 mg tablet 50 mg PO BID Qty: 60 11RF nitroglycerin [Nitrostat] 0.4 mg tablet, sublingual 0.4 mg SUBLINGUAL Q5M PRN (Reason: chest pain) Qty: 20 11RF Rx Instructions: do not exceed 3 doses per episode spironolactone 25 mg tablet See Rx Instructions .ROUTE .COMPLEX Qty: 45 10RF Dose Instruction: take 1/2 tablet BY MOUTH EVERY DAY Rx Instructions: take 1/2 tablet BY MOUTH EVERY DAY mometasone 50 mcg/actuation spray,non-aerosol See Rx Instructions .ROUTE .COMPLEX Qty: 17 3RF Dose Instruction: USE 2 SPRAYS IN EACH NOSTRIL EVERY DAY NEEDED FOR allergies Rx Instructions: USE 2 SPRAYS IN EACH NOSTRIL EVERY DAY NEEDED FOR allergies Eliquis 5 mg tablet See Rx Instructions .ROUTE .COMPLEX Qty: 180 3RF Dose Instruction: TAKE 1 TABLET BY MOUTH TWICE DAILY Rx Instructions: TAKE 1 TABLET BY MOUTH TWICE DAILY irbesartan 300 mg tablet See Rx Instructions .ROUTE .COMPLEX Qty: 90 10RF Dose Instruction: TAKE 1 TABLET BY MOUTH EVERY DAY Rx Instructions: TAKE 1 TABLET BY MOUTH EVERY DAY Miralax 17 gram powder in packet 17 g PO DAILY Qty: 14 0RF Golytely 236-22.74-6.74 -5.86 gram recon soln 240 ml PO Q10M Qty: 4000 0RF Rx Instructions: until fecal effluent is clear Discharge Orders: Discharge ED (Routine); Ordered 02/18/25 Ordered By: Ayla Lundberg Referrals: Steve Valladares MD [Primary Care Provider, Family Practice] - 4-7 days Discharge Diet: Advance as tolerated Discharge Activity: Resume usual activity Patient Instructions: Head Injury (ED), Skin Adhesive Care (ED) Print Language: Lithuanian Coding Level of Care Code ED Route Delivery Manager for Ai Matos
[2025-02-18 01:11] VITALS: BP 162/80; PULSE 73; O2SAT 99
--- NOTE | 2025-02-18 01:52 | XRR_ITS ---
PROCEDURE INFORMATION: Exam: XR Right Hand Exam date and time: 02/18/2025 1:52 AM Age: 84 years old Clinical indication: Injury or trauma; Fall; Blunt trauma (contusions or hematomas); Hand; Right TECHNIQUE: Imaging protocol: Radiologic exam of the right hand. Views: 3 or more views. COMPARISON: No relevant prior studies available. FINDINGS: Bones/joints: Moderate osseous demineralization. Multiple chronic appearing alignment abnormalities. Severe degenerative changes of the hand limit evaluation. Extensive osteophytes are present. No definitive acute fracture or dislocation is seen. Irregularity of the distal aspect of the 5th proximal phalanx is likely chronic. There are severe degenerative changes of the proximal and distal interphalangeal joints as well as loop base of the thumb and to a lesser extent the triscaphe joint. Soft tissues: Multifocal soft tissue swelling. XR/XR hand RT min 3V* [id number] IMPRESSION: 1. No definitive evidence of acute fracture or dislocation. 2. Severe degenerative changes of the right hand in the distribution typical of osteoarthritis.
[2025-02-18] MEDS: ondansetron hcl ODT 4 mg Tab PO ×2 (01:59→02:45)
[2025-02-18 02:00] VITALS: BP 181/90; PULSE 69; O2SAT 98
--- NOTE | 2025-02-18 02:39 | ECG_ITS ---
[facility] Date: 2025-02-18 Pat Name: Jenifer Osborne Department: Room: Gender: Female [employer]: : 1940 Requested By: Ayla Lundberg Order Number: [id number] Huber MD: Moe Calvin M.D. Measurements Intervals [place] Rate: 69 P: 47 OR: 184 QRS: -42 QRSD: 159 T: 62 QT: 415 QTc: 447 Interpretive Statements ELECTRONIC ATRIAL PACEMAKER ELECTRONIC VENTRICULAR PACEMAKER ATRIAL-VENTRICULAR DUAL-PACED RHYTHM ABNORMAL RHYTHM ECG Compared to ECG 01/10/2024 17:23:56 No significant changes Electronically Signed On 02-19-2025 23:15:37 CDT by Moe Calvin M.D. [email or web address]
[2025-02-18 03:19] VITALS: BP 175/89; PULSE 70; O2SAT 98
== END 2025-02-18 03:11 | disposition home or self-care (01) ==
PROVIDERS: Emergency Provider Emergency Medicine; PCP Family Medicine
DX: S01.81XA Laceration without foreign body of other part of head, initial encounter (principal); Z79.82 Long term (current) use of aspirin; Z79.01 Long term (current) use of anticoagulants; I10 Essential (primary) hypertension; Z95.0 Presence of cardiac pacemaker; E78.5 Hyperlipidemia, unspecified; Z86.73 Personal history of transient ischemic attack (TIA), and cerebral infarction without residual deficits; W01.0XXA Fall on same level from slipping, tripping and stumbling without subsequent striking against object, initial encounter
CPT/HCPCS: 12011; 70450; 72125; 73130; 93005; 99284; J9999; Q0162

== ENCOUNTER → 2025-02-25 14:46 | Outpatient (BNVA) | payer MEDICARE, OTHER, SELFPAY | PROVIDERS: PCP Family Medicine; Visit Provider Family Medicine | DX: E78.5 Hyperlipidemia, unspecified (principal); I10 Essential (primary) hypertension; I48.91 Unspecified atrial fibrillation; I48.92 Unspecified atrial flutter; R73.9 Hyperglycemia, unspecified | CPT/HCPCS: 80053; 80061; 83036; 85025 ==

== ENCOUNTER → 2025-05-26 14:07 | Outpatient (BNVA) | payer MEDICARE, OTHER, SELFPAY | PROVIDERS: PCP Family Medicine; Visit Provider Family Medicine | DX: I10 Essential (primary) hypertension (principal); I48.91 Unspecified atrial fibrillation; I48.92 Unspecified atrial flutter; E78.5 Hyperlipidemia, unspecified; R73.9 Hyperglycemia, unspecified | CPT/HCPCS: 80053; 83036; 85025 ==

== ENCOUNTER 2025-06-06 12:47 | Outpatient (CLI) | payer MEDICARE, OTHER, SELFPAY ==
--- NOTE | 2025-06-06 13:30 | USCV_ITS ---
Dylon Jenifer Age: 84 Gender: F : 1940 Exam Date: 06/06/2025 13:01 Ordering Phys: Steve Valladares MD Technologist: HECTOR Exam Location: [facility] [place] Indication: CP BP: 128 / 75 HR: 70 Rhythm: Sinus Technical Quality: Adequate MEASUREMENTS (Male / Female) Normal Values 2D ECHO LV Diastolic Diameter PLAX 5.0 cm 4.2 - 5.9 / 3.9 - 5.3 cm IVS Diastolic Thickness 0.9 cm 0.6 - 1.0 / 0.6 - 0.9 cm IVS Systolic Thickness 0.9 cm LVPW Diastolic Thickness 0.9 cm 0.6 - 1.0 / 0.6 - 0.9 cm LVPW Systolic Thickness 1.1 cm LVOT Diameter 1.9 cm LV Ejection Fraction 2D Teich 26.1 % LV Ejection Fraction MOD 4C 51.4 % LV Ejection Fraction MOD 2C 54.1 % LV Ejection Fraction 2C AL 54.2 % LA Diameter 4.0 cm RA Systolic Volume 4C AL 28.2 ml RA Systolic Volume 4C MOD 27.6 ml LA Sys Volume AL 43.2 cm cubed LA Sys Volume Index AL 21.6 cm cubed/m squared Aorta at Sinotubular Diameter 2.5 cm IVC Diameter 2.2 cm M-MODE LA Ao Ratio MM 1.4 AV Cusp Separation MM 1.7 cm DOPPLER AV Peak Velocity 142.0 cm/s LVOT Peak Velocity 87.0 cm/s AV Area Cont Eq vti 2.0 cm squared AV Area Cont Eq pk 1.7 cm squared MV Peak Velocity 110.0 cm/s MV Area PHT 3.3 cm squared Mitral E to A Ratio 1.7 TV Peak Velocity 231.0 cm/s TR Peak Velocity 291.0 cm/s TR Peak Gradient 33.9 mmHg TV Peak E Velocity 67.0 cm/s PV Peak Velocity 113.0 cm/s FINDINGS Left Ventricle Normal left ventricular size, systolic function and wall thickness, with no regional wall motion abnormalities. Left ventricular ejection fraction is estimated at 55 %. Grade II/IV diastolic dysfunction, moderately elevated filling pressures. Abnormal septal motion consistent with conduction abnormality. Right Ventricle Normal right ventricular size and systolic function. Right Atrium Normal right atrial size. Left Atrium Normal left atrial size. IA Septum Normal appearance of the interatrial septum. Mitral Valve Mildly thickened mitral valve. No mitral valve stenosis. Mild to moderate mitral valve regurgitation. Aortic Valve Moderate aortic valve calcification. Trace to mild aortic valve regurgitation. Mild aortic valve stenosis, mean gradient 4.6 mmHg, SUMMER 2 cm squared. Tricuspid Valve Mild tricuspid valve regurgitation. Pulmonic Valve Trace pulmonary valve regurgitation. Pericardium No pericardial effusion. Aorta Normal diameter of the aortic root and ascending thoracic aorta. IVC Normal IVC diameter. CONCLUSIONS Normal left ventricular size, systolic function and wall thickness, with no regional wall motion abnormalities. Left ventricular ejection fraction is estimated at 55 %. Grade II/IV diastolic dysfunction, moderately elevated filling pressures. Abnormal septal motion consistent with conduction abnormality. Moderate aortic valve calcification. Trace to mild aortic valve regurgitation. Mild aortic valve stenosis, mean gradient 4.6 mmHg, SUMMER 2 cm squared. Mildly thickened mitral valve. No mitral valve stenosis. Mild to moderate mitral valve regurgitation. Mild tricuspid valve regurgitation. There is no pericardial effusion. Right atrial pressure is around 5 mm of mercury. Neel Caceres MD (Electronically Signed) Final Date: 15 June 2025 15:20 S
== END 2025-06-06 12:48 | disposition home or self-care (01) ==
LOC: RAD 12:48
PROVIDERS: PCP Family Medicine; Visit Provider Family Medicine
DX: R07.9 Chest pain, unspecified (principal); I10 Essential (primary) hypertension; I48.91 Unspecified atrial fibrillation; I48.92 Unspecified atrial flutter; R93.1 Abnormal findings on diagnostic imaging of heart and coronary circulation; I34.0 Nonrheumatic mitral (valve) insufficiency; I35.8 Other nonrheumatic aortic valve disorders; I35.1 Nonrheumatic aortic (valve) insufficiency; I35.0 Nonrheumatic aortic (valve) stenosis; I07.1 Rheumatic tricuspid insufficiency
CPT/HCPCS: 93306